=== PATIENT | female | born 1985 | race Caucasian/White ===

== ENCOUNTER 2017-07-26 06:45 | Inpatient (IN) | payer MEDICAID ==
[2017-07-26] MEDS ORDERED: Sodium Chloride 0.9% 10 ML Syringe FLUSH PRN (07:23)
[2017-07-26] MEDS ORDERED: Acetaminophen 325 MG Tab PO PRN (07:23)
[2017-07-26] MEDS ORDERED: fentaNYL 100 MCG/2 ML SDV IVPUSH PRN (07:23)
[2017-07-26] MEDS ORDERED: Calcium Carbonate 500 MG Tab.Chew PO PRN (07:23)
[2017-07-26] MEDS ORDERED: Ondansetron 4 MG/2 ML SDV IV PRN (07:23)
[2017-07-26] MEDS ORDERED: Misoprostol 50 MCG (1/2 of 100 MCG) Tab VAG ONE (07:30)
--- NOTE | 2017-07-26 07:52 | PCM.LDHP ---
L&D History of Present Illness - General Date of Service: 07/26/17 (Induction) Admit Problem/Dx: Patient Status Order with Admit Dx/Problem 07/26/17 07:25 Patient Status [ADT] Routine Admission Diagnosis/Problem Admission Diagnosis/Problem - Related Data Allergies/Adverse Reactions: Allergies Allergy/AdvReac Type Severity Reaction Status Date / Time No Known Allergies Allergy Verified 01/28/16 19:28 Past Medical History [employer] History: Reports: Other (See Below) (MALORIE-08/02/2017) : 4 Para: 3 Social & Family History - Tobacco Use Smoking Status *Q: Former Smoker Years of Tobacco use: 14 Packs/Tins Daily: 0.5 Used Tobacco, but Quit: Yes Month/Year Tobacco Last Used: June Second Hand Smoke Exposure: No - Caffeine Use Caffeine Use: Reports: Soda - Recreational Drug Use Recreational Drug Use: No H&P Review of Systems - Review of Systems: Review Of Systems: See Below General: Reports: No Symptoms HEENT: Reports: No Symptoms Pulmonary: Reports: No Symptoms Cardiovascular: Reports: No Symptoms Gastrointestinal: Reports: No Symptoms Genitourinary: Reports: No Symptoms Musculoskeletal: Reports: No Symptoms Skin: Reports: No Symptoms Psychiatric: Reports: No Symptoms Neurological: Reports: No Symptoms Hematologic/Lymphatic: Reports: No Symptoms Immunologic: Reports: No Symptoms L&D Exam - Exam Exam: See Below - Vital Signs Vital Signs: Last Vital Signs Temp 35.9 C 07/26/17 07:07 Pulse 81 07/26/17 07:07 Resp 16 07/26/17 07:07 BP 122/77 07/26/17 07:07 Pulse Ox 95 07/26/17 07:07 Weight: 94.075 kg - Escalante Score Escalante Score Cervix Position: Midposition Escalante Score Consistency: Soft Escalante Score Effacement: 31-50% Escalante Score Dilation: 1-2 cm Escalante Score 's Station: -2 Escalante Score Total: 6 - Exam General: Alert, Oriented HEENT: PERRLA, Conjunctiva Clear, EACs Clear, EOMI, Hearing Intact, Mucosa Moist & [place], Nares Patent, Normal Nasal Septum, Posterior Pharynx Clear, TMs Clear Neck: Supple, Trachea Midline Lungs: Clear to Auscultation, Normal Respiratory Effort Cardiovascular: Regular Rate, Regular Rhythm GI/Abdominal Exam: Normal Bowel Sounds, Soft, Non-Tender, No Organomegaly, No Distention, No Abnormal Bruit, No Mass, Pelvis Stable Rectal Exam: Normal Exam, Normal Rectal Tone Genitourinary: Normal external exam, Normal bimanual exam, Normal speculum exam Back Exam: Normal Inspection, Full Range of Motion Extremities: Normal Inspection, Normal Range of Motion, Non-Tender, No Pedal Edema, Normal Capillary Refill Skin: Warm, Dry, Intact Neurological: Cranial Nerves Intact, Reflexes Equal Bilateral DTR: 2+: Patella (L), Patella (R) Psychiatric: Alert, Normal Affect, Normal Mood - Patient Data Lab Results Last 24 hrs: Laboratory Results - last 24 hr 07/26/17 07/26/17 Range/Units 07:23 07:23 WBC 8.4 (4.5-11.0) K/uL RBC 4.18 (3.30-5.50) M/uL Hgb 12.7 (12.0-15.0) g/dL Hct 37.4 (36.0-48.0) % MCV 90 (80-98) fL MCH 30 (27-31) pg MCHC 34 (32-36) % Plt Count 194 (150-400) K/uL Neut % (Auto) 66 (36-66) % Lymph % (Auto) 24 (24-44) % Barron % (Auto) 9 H (2-6) % Eos % (Auto) 1 L (2-4) % Baso % (Auto) 0 (0-1) % Urine Color Yellow Urine Appearance Cloudy Urine pH 6.0 (4.5-8.0) Ur Specific [place] 1.020 (1.008-1.030) Urine Protein Negative (NEGATIVE) mg/dL Urine Glucose (UA) Normal (NEGATIVE) mg/dL Urine Ketones Negative (NEGATIVE) mg/dL Urine Occult Blood Negative (NEGATIVE) Urine Nitrite Negative (NEGATIVE) Urine Bilirubin Negative (NEGATIVE) Urine Urobilinogen Normal (NORMAL) mg/dL Ur Leukocyte Esterase Large (NEGATIVE) Urine RBC Not seen (0-5) Urine WBC 30-40 H (0-5) Ur Epithelial Cells Many Amorphous Sediment Moderate Urine Bacteria Moderate Urine Mucus Not seen Urine Other See note Result Diagrams: 07/26/17 07:23 - Problem List (1) SNOMED Code(s): 10829275 ICD Code: Z34.90 - ENCNTR FOR SUPRVSN OF NORMAL , UNSP, UNSP TRIMESTER Status: Acute Current Visit: Yes Qualifiers: Weeks of gestation: 39 weeks Qualified Code(s): Z3A.39 - 39 weeks gestation of (2) GBS (group B streptococcus) infection SNOMED Code(s): 069094545 ICD Code: A49.1 - STREPTOCOCCAL INFECTION, UNSPECIFIED SITE Status: Acute Priority: High Current Visit: Yes (3) Encounter for induction of labor SNOMED Code(s): 831531947 ICD Code: Z34.90 - ENCNTR FOR SUPRVSN OF NORMAL , UNSP, UNSP TRIMESTER Status: Acute Current Visit: Yes Problem List Initiated/Reviewed/Updated: Yes Orders Last 24hrs: Active Orders 24 hr Category Date Time Status Patient Status [ADT] Routine ADT 07/26/17 07:25 Active Ambulate [RC] PER UNIT ROUTINE Care 07/26/17 07:23 Active Communication Order [RC] ASDIRECTED Care 07/26/17 07:25 Active Heart Tones [RC] PER UNIT ROUTINE Care 07/26/17 07:25 Active May Shower [RC] ASDIRECTED Care 07/26/17 07:23 Active Notify Provider Vital Signs [RC] PRN Care 07/26/17 07:23 Active Notify Provider [RC] PRN Care 07/26/17 07:25 Active Up ad Vero [RC] ASDIRECTED Care 07/26/17 07:23 Active VTE/DVT Education [RC] Click to Edit Care 07/26/17 07:26 Active Vital Signs [RC] PER UNIT ROUTINE Care 07/26/17 07:25 Active Regular Diet [DIET] Diet 07/26/17 Breakfast Active DRUG SCREEN, URINE [URCHEM] Routine Lab 07/26/17 07:23 Ordered UA W/MICROSCOPIC [URIN] Routine Lab 07/26/17 07:23 Ordered Acetaminophen [Tylenol] Med 07/26/17 07:23 Active 650 mg PO Q4H PRN Calcium Carbonate [Tums] Med 07/26/17 07:23 Active 1,000 mg PO Q2H PRN Lactated Ringers [Ringers, Lactated] 1,000 ml Med 07/26/17 07:45 Active IV ASDIRECTED Ondansetron [Zofran] Med 07/26/17 07:23 Active 4 mg IV Q4H PRN Oxytocin/Normal Saline [Pitocin in NS 20 Units/1,000 ML Med 07/26/17 07:29 Active ] 20 unit in 1,000 ml IV ONETIME Penicillin G Potassium [Pfizerpen] 2.5 millunits Med 07/26/17 12:00 Active Sodium Chloride 0.9% [Normal Saline] 50 ml IV Q4H Penicillin G Potassium [Pfizerpen] 5 millunits Med 07/26/17 08:00 Active Sodium Chloride 0.9% [Normal Saline] 50 ml IV ONETIME Sodium Chloride 0.9% [Saline Flush] Med 07/26/17 07:23 Active 10 ml FLUSH ASDIRECTED PRN fentaNYL [Sublimaze] Med 07/26/17 07:23 Active 100 mcg IVPUSH Q1H PRN DVT/VTE Prophylaxis Reflex [OM.PC] Routine Oth 07/26/17 07:23 Ordered Epidural Catheter Management [OM.PC] Routine Oth 07/26/17 07:33 Ordered Saline Lock Insert [OM.PC] Routine Oth 07/26/17 07:25 Ordered Resuscitation Status Routine Resus Stat 07/26/17 07:23 Ordered Medication Orders Acetaminophen (Tylenol) 650 mg PO Q4H PRN PRN Reason: Pain (Mild 1-3) and fever Calcium Carbonate/Glycine (Tums) 1,000 mg PO Q2H PRN PRN Reason: Indigestion Fentanyl (Sublimaze) 100 mcg IVPUSH Q1H PRN PRN Reason: Pain (moderate 4-6) Oxytocin/Sodium Chloride (Pitocin In Ns 20 Units/1,000 Ml) 20 unit in 1,000 mls @ 2,997 mls/hr IV ONETIME ONE; Protocol Stop: 07/26/17 07:49 Penicillin G Potassium 5 (millunits/ Sodium Chloride) 50 mls @ 100 mls/hr IV ONETIME ONE Stop: 07/26/17 08:29 Penicillin G Potassium 2.5 (millunits/ Sodium Chloride) 50 mls @ 100 mls/hr IV Q4H [facility] Lactated Ringer's (Ringers, Lactated) 1,000 mls @ 125 mls/hr IV ASDIRECTED [facility] Ondansetron HCl (Zofran) 4 mg IV Q4H PRN PRN Reason: Nausea/Vomiting Sodium Chloride (Saline Flush) 10 ml FLUSH ASDIRECTED PRN PRN Reason: Keep Vein Open Assessment/Plan Comment:: 07/26/2017 31yo at 39 0/7 gestational weeks here for an elective induction of labor SVE-1/50/-2 Bishops score-6 Cytotec 50mcg @ 0770 GBS Positive Plan- Monitor for active labor Monitor FHTs Pen G per protocol for GBS status IV fluids with Pen G then can saline lock Up ad vero Can shower Regular diet Pain management per patient request-IV or epidural Plan and anticipate for vaginal delivery
[2017-07-26] MEDS ORDERED: Penicillin G Potassium 5 MILLUNITS in Sodium Chloride 0.9% 50 ML IV ONE (08:00)
[2017-07-26] MEDS ORDERED: Mineral Oil 10 ML Bottle ONE (09:39)
[2017-07-26] MEDS ORDERED: Oxytocin 10 Units/1 ML SDV ONE (09:39)
[2017-07-26] MEDS ORDERED: Lidocaine 1% 50 ML MDV ONE (09:40)
[2017-07-26] MEDS ORDERED: Naloxone 0.4 MG/ML SDV ONE (09:40)
[2017-07-26] MEDS: Penicillin G Potassium 2.5 MILLUNITS in Sodium Chloride 0.9% 50 ML IV SCH ×3 (12:36→22:55)
[2017-07-26] MEDS: Lactated Ringers 1,000 ML IV SCH ×2 (12:37→15:22)
[2017-07-26] MEDS ORDERED: ePHEDrine 50 MG/ML SDV ONE (14:49)
[2017-07-26] MEDS ORDERED: ROPIVACAINE EPIDUR ONE (14:55)
[2017-07-26] MEDS ORDERED: ePHEDrine 50 MG/ML SDV IVPUSH ONE (15:32)
[2017-07-26] MEDS ORDERED: Ropivacaine 100 ML EPIDUR SCH (15:39)
[2017-07-26] MEDS ORDERED: ePHEDrine 50 MG/ML SDV IV PRN (15:39)
[2017-07-26] MEDS ORDERED: Naloxone 0.4 MG/ML SDV IVPUSH PRN (15:39)
--- NOTE | 2017-07-26 16:51 | PCM.PNLD ---
Labor Progress Note - VS & Meds Vital Signs: Last Vital Signs Temp 36.5 C 07/26/17 07:50 Pulse 64 07/26/17 15:27 Resp 18 07/26/17 15:18 BP 102/56 L 07/26/17 15:30 Pulse Ox 97 07/26/17 15:18 Active Medications: Current Medications Acetaminophen (Tylenol) 650 mg PO Q4H PRN PRN Reason: Pain (Mild 1-3) and fever Calcium Carbonate/Glycine (Tums) 1,000 mg PO Q2H PRN PRN Reason: Indigestion Ephedrine Sulfate (Ephedrine Sulfate) 5 - 10 mg IV ASDIRECTED PRN PRN Reason: Systolic BP less than 100 Fentanyl (Sublimaze) 100 mcg IVPUSH Q1H PRN PRN Reason: Pain (moderate 4-6) Penicillin G Potassium 2.5 (millunits/ Sodium Chloride) 50 mls @ 100 mls/hr IV Q4H [facility] Last Admin: 07/26/17 16:13 Dose: 100 mls/hr Lactated Ringer's (Ringers, Lactated) 1,000 mls @ 125 mls/hr IV ASDIRECTED [facility] Last Admin: 07/26/17 15:22 Dose: 125 mls/hr Oxytocin/Sodium Chloride (Pitocin In Ns 20 Units/1,000 Ml) 20 unit in 1,000 mls @ 6 mls/hr IV TITRATE [facility]; Protocol Last Titration: 07/26/17 15:24 Dose: 10 munits/min, 30 mls/hr Ropivacaine (Naropin 0.2%) 100 mls @ 0 mls/hr EPIDUR ASDIRECTED [facility]; Protocol Naloxone HCl (Narcan) 0.1 mg IVPUSH Q5M PRN PRN Reason: IF RESP RATE LESS THAN 6 Ondansetron HCl (Zofran) 4 mg IV Q4H PRN PRN Reason: Nausea/Vomiting Sodium Chloride (Saline Flush) 10 ml FLUSH ASDIRECTED PRN PRN Reason: Keep Vein Open Discontinued Medications Ephedrine Sulfate (Ephedrine Sulfate) Confirm Administered Dose 50 mg .ROUTE .STK-MED ONE Stop: 07/26/17 14:50 Oxytocin/Sodium Chloride (Pitocin In Ns 20 Units/1,000 Ml) 20 unit in 1,000 mls @ 2,997 mls/hr IV ONETIME ONE; Protocol Stop: 07/26/17 07:49 Penicillin G Potassium 5 (millunits/ Sodium Chloride) 50 mls @ 100 mls/hr IV ONETIME ONE Stop: 07/26/17 08:29 Last Admin: 07/26/17 08:30 Dose: 100 mls/hr Ropivacaine 400 mg/ Premix 200 mls @ as directed EPIDUR .STK-MED ONE Stop: 07/26/17 14:56 Lidocaine HCl (Xylocaine 1%) Confirm Administered Dose 100 ml .ROUTE .STK-MED ONE Stop: 07/26/17 09:41 Mineral Oil (Muri-Lube) Confirm Administered Dose 10 ml .ROUTE .STK-MED ONE Stop: 07/26/17 09:40 Misoprostol (Cytotec) 50 mcg VAG ONETIME ONE Stop: 07/26/17 07:31 Last Admin: 07/26/17 07:39 Dose: 50 mcg Naloxone HCl (Narcan) Confirm Administered Dose 0.4 mg .ROUTE .STK-MED ONE Stop: 07/26/17 09:41 Oxytocin (Pitocin) Confirm Administered Dose 10 unit .ROUTE .STK-MED ONE Stop: 07/26/17 09:40 - Uterine Contractions Uterine Monitoring Mode: External [place] Contraction Frequency (min): 1 Contraction Duration (sec): 50 Contraction Intensity: Mild to Moderate Uterine Resting Tone: Soft - Vaginal Exam Dilation (cm): 1-2 Effacement (Percent): 60 Station: -2 Cervical Position: Posterior Sterile Vaginal Exam Performed By: Galilea Johnston - Labor Progress (Free Text) Labor Progress: 02/25/2017 SVE-1-2/60/-2 Contractions becoming more regular Patient still remains comfortable FHTs category one Plan- Continue to monitor for active labor Continue to monitor FHTs Initiate Pitocin per protocol Pain management per patient request PCN G for GBS prophylaxis Plan and anticipate vaginal delivery
--- NOTE | 2017-07-26 17:15 | PCM.PNLD ---
Labor Progress Note - VS & Meds Vital Signs: Last Vital Signs Temp 36.5 C 07/26/17 07:50 Pulse 64 07/26/17 15:27 Resp 18 07/26/17 15:18 BP 102/56 L 07/26/17 15:30 Pulse Ox 97 07/26/17 15:18 Active Medications: Current Medications Acetaminophen (Tylenol) 650 mg PO Q4H PRN PRN Reason: Pain (Mild 1-3) and fever Calcium Carbonate/Glycine (Tums) 1,000 mg PO Q2H PRN PRN Reason: Indigestion Ephedrine Sulfate (Ephedrine Sulfate) 5 - 10 mg IV ASDIRECTED PRN PRN Reason: Systolic BP less than 100 Fentanyl (Sublimaze) 100 mcg IVPUSH Q1H PRN PRN Reason: Pain (moderate 4-6) Penicillin G Potassium 2.5 (millunits/ Sodium Chloride) 50 mls @ 100 mls/hr IV Q4H [facility] Last Admin: 07/26/17 16:13 Dose: 100 mls/hr Lactated Ringer's (Ringers, Lactated) 1,000 mls @ 125 mls/hr IV ASDIRECTED [facility] Last Admin: 07/26/17 15:22 Dose: 125 mls/hr Oxytocin/Sodium Chloride (Pitocin In Ns 20 Units/1,000 Ml) 20 unit in 1,000 mls @ 6 mls/hr IV TITRATE [facility]; Protocol Last Titration: 07/26/17 15:24 Dose: 10 munits/min, 30 mls/hr Ropivacaine (Naropin 0.2%) 100 mls @ 0 mls/hr EPIDUR ASDIRECTED [facility]; Protocol Naloxone HCl (Narcan) 0.1 mg IVPUSH Q5M PRN PRN Reason: IF RESP RATE LESS THAN 6 Ondansetron HCl (Zofran) 4 mg IV Q4H PRN PRN Reason: Nausea/Vomiting Sodium Chloride (Saline Flush) 10 ml FLUSH ASDIRECTED PRN PRN Reason: Keep Vein Open Discontinued Medications Ephedrine Sulfate (Ephedrine Sulfate) Confirm Administered Dose 50 mg .ROUTE .STK-MED ONE Stop: 07/26/17 14:50 Oxytocin/Sodium Chloride (Pitocin In Ns 20 Units/1,000 Ml) 20 unit in 1,000 mls @ 2,997 mls/hr IV ONETIME ONE; Protocol Stop: 07/26/17 07:49 Penicillin G Potassium 5 (millunits/ Sodium Chloride) 50 mls @ 100 mls/hr IV ONETIME ONE Stop: 07/26/17 08:29 Last Admin: 07/26/17 08:30 Dose: 100 mls/hr Ropivacaine 400 mg/ Premix 200 mls @ as directed EPIDUR .STK-MED ONE Stop: 07/26/17 14:56 Lidocaine HCl (Xylocaine 1%) Confirm Administered Dose 100 ml .ROUTE .STK-MED ONE Stop: 07/26/17 09:41 Mineral Oil (Muri-Lube) Confirm Administered Dose 10 ml .ROUTE .STK-MED ONE Stop: 07/26/17 09:40 Misoprostol (Cytotec) 50 mcg VAG ONETIME ONE Stop: 07/26/17 07:31 Last Admin: 07/26/17 07:39 Dose: 50 mcg Naloxone HCl (Narcan) Confirm Administered Dose 0.4 mg .ROUTE .STK-MED ONE Stop: 07/26/17 09:41 Oxytocin (Pitocin) Confirm Administered Dose 10 unit .ROUTE .STK-MED ONE Stop: 07/26/17 09:40 - Uterine Contractions Uterine Monitoring Mode: External [place] Contraction Frequency (min): 1 Contraction Duration (sec): 50 Contraction Intensity: Mild to Moderate Uterine Resting Tone: Soft - Vaginal Exam Dilation (cm): 4-5 Effacement (Percent): 80 Station: -1 Cervical Position: Midposition Sterile Vaginal Exam Performed By: Galilea Johnston - Labor Progress (Free Text) Labor Progress: 02/25/2017 Patient progressing in labor SVE-4-5/80/-1 AROM-clear, bloody show Patient received epidural-pain well managed Plan- Continue to monitor labor Continue to monitor FHTS Continue epidural for pain management per patient request Continue Pen G for GBS Plan and anticipate a vaginal delivery
[2017-07-26] MEDS ORDERED: Ropivacaine HCl/PF 200 ML ONE (17:21)
[2017-07-26] MEDS ORDERED: Docusate Sodium 100 MG Cap PO PRN (18:53)
[2017-07-26] MEDS ORDERED: Lanolin 100% Cream 40 GM Tube TOP PRN (18:53)
[2017-07-26] MEDS ORDERED: Ibuprofen 200 MG Tab, 24 Tab Bulk Bottle PO PRN (18:53)
[2017-07-26] MEDS ORDERED: Acetaminophen 325 MG Tab, 50 Tab Bulk Bottle PO PRN (18:53)
[2017-07-26] MEDS ORDERED: Acetaminophen/Codeine 300-30 MG Tab PO PRN (18:53)
[2017-07-26] MEDS ORDERED: Ibuprofen 600 MG Tab PO PRN (18:53)
--- NOTE | 2017-07-26 19:24 | PCM.DEL ---
L & D Note - General Info Date of Service: 07/26/17 - Delivery Note Labor: Spontaneous Delivery Outcome: Livebirth Delivery Method: Spontaneous Vaginal Delivery-Single Delivery Mode: Spontaneous Presentation: Left Occiput Anterior (ZIGGY) Nuchal Cord: None Anesthesia Type: Epidural Amniotic Fluid Description: Clear Episiotomy Type: None Laceration: None Placenta: Intact, Spontaneous Cord: 3 Vessels Estimated Blood Loss: 350 Resuscitation Needed: No : Bulb Syringe, Stimulated, Warmed, Vass Used Provider: Galilea Johnston Score 1 min: 8 Score 5 min: 8 Second Stage Interventions: Reports: Encouragement Given, Pushing Effectively Delivery Comments (Free Text/Narrative):: 02/25/2017 31 yo at 39 0/7 gestational weeks delivered a viable male at 1811 on 07/26 without complications in ZIGGY position. APGARS-8/8, weight-7lbs 4.7oz, length-19.7inches, bulb suctioned, warmed, dried and stimulated, deep suction done on warmer times three for 2.5ml of bloody mucous, Placenta spontaneous, three vessel cord. No lacerations noted of labira, cervix, vagina , rectum, or perineum. EBL-350ml. Mother in labor room in stable condition, infant skin to skin in stable condition. - General Info Date of Service: 07/26/17 Functional Status: Reports: Pain Controlled - Review of Systems General: Reports: No Symptoms HEENT: Reports: No Symptoms Pulmonary: Reports: No Symptoms Cardiovascular: Reports: No Symptoms Gastrointestinal: Reports: No Symptoms Genitourinary: Reports: No Symptoms Musculoskeletal: Reports: No Symptoms Skin: Reports: No Symptoms Neurological: Reports: No Symptoms Psychiatric: Reports: No Symptoms - Patient Data Vitals - Most Recent: Last Vital Signs Temp 36.5 C 07/26/17 07:50 Pulse 60 07/26/17 16:43 Resp 16 07/26/17 16:10 BP 104/59 L 07/26/17 16:43 Pulse Ox 99 07/26/17 16:43 Weight - Most Recent: 94.075 kg I&O - Last 24 Hours: Intake & Output 07/26/17 07/26/17 07/26/17 06:59 14:59 22:59 Intake Total 100 50 Balance 100 50 Lab Results Last 24 Hours: Laboratory Results - last 24 hr 07/26/17 07/26/17 07/26/17 Range/Units 07:23 07:23 07:23 WBC 8.4 (4.5-11.0) K/uL RBC 4.18 (3.30-5.50) M/uL Hgb 12.7 (12.0-15.0) g/dL Hct 37.4 (36.0-48.0) % MCV 90 (80-98) fL MCH 30 (27-31) pg MCHC 34 (32-36) % Plt Count 194 (150-400) K/uL Neut % (Auto) 66 (36-66) % Lymph % (Auto) 24 (24-44) % [place] % (Auto) 9 H (2-6) % Eos % (Auto) 1 L (2-4) % Baso % (Auto) 0 (0-1) % Urine Color Yellow Urine Appearance Cloudy Urine pH 6.0 (4.5-8.0) Ur Specific [place] 1.020 (1.008-1.030) Urine Protein Negative (NEGATIVE) mg/dL Urine Glucose (UA) Normal (NEGATIVE) mg/dL Urine Ketones Negative (NEGATIVE) mg/dL Urine Occult Blood Negative (NEGATIVE) Urine Nitrite Negative (NEGATIVE) Urine Bilirubin Negative (NEGATIVE) Urine Urobilinogen Normal (NORMAL) mg/dL Ur Leukocyte Esterase Large (NEGATIVE) Urine RBC Not seen (0-5) Urine WBC 30-40 H (0-5) Ur Epithelial Cells Many Amorphous Sediment Moderate Urine Bacteria Moderate Urine Mucus Not seen Urine Other See note Urine Opiates Screen Negative (NEGATIVE) Ur Oxycodone Screen Negative (NEGATIVE) Urine Methadone Screen Negative (NEGATIVE) Ur Propoxyphene Screen Negative (NEGATIVE) Ur Barbiturates Screen Negative (NEGATIVE) Ur Tricyclics Screen Negative (NEGATIVE) Ur Phencyclidine Scrn Negative (NEGATIVE) Ur Amphetamine Screen Negative (NEGATIVE) U Methamphetamines Scrn Negative (NEGATIVE) Urine MDMA Screen Negative (NEGATIVE) U Benzodiazepines Scrn Negative (NEGATIVE) U Cocaine Metab Screen Negative (NEGATIVE) U Marijuana (THC) Screen Negative (NEGATIVE) Med Orders - Current: Current Medications Acetaminophen (Tylenol) 650 mg PO Q4H PRN PRN Reason: Pain (Mild 1-3) and fever Acetaminophen (Tylenol Bulk Bottle) 325 mg PO Q4H PRN PRN Reason: Pain Acetaminophen/Codeine Phosphate (Tylenol With Codeine No.3 300mg/30mg) 1 tab PO Q4H PRN PRN Reason: Pain (moderate 4-6) Calcium Carbonate/Glycine (Tums) 1,000 mg PO Q2H PRN PRN Reason: Indigestion Docusate Sodium (Colace) 100 mg PO BID PRN PRN Reason: Constipation Emollient Ointment (Lansinoh Hpa) 1 gm TOP ASDIRECTED PRN PRN Reason: Sore Nipples Ephedrine Sulfate (Ephedrine Sulfate) 5 - 10 mg IV ASDIRECTED PRN PRN Reason: Systolic BP less than 100 Fentanyl (Sublimaze) 100 mcg IVPUSH Q1H PRN PRN Reason: Pain (moderate 4-6) Penicillin G Potassium 2.5 (millunits/ Sodium Chloride) 50 mls @ 100 mls/hr IV Q4H [facility] Last Admin: 07/26/17 16:13 Dose: 100 mls/hr Lactated Ringer's (Ringers, Lactated) 1,000 mls @ 125 mls/hr IV ASDIRECTED [facility] Last Admin: 07/26/17 15:22 Dose: 125 mls/hr Oxytocin/Sodium Chloride (Pitocin In Ns 20 Units/1,000 Ml) 20 unit in 1,000 mls @ 6 mls/hr IV TITRATE [facility]; Protocol Last Titration: 07/26/17 17:30 Dose: 8 munits/min, 24 mls/hr Ropivacaine (Naropin 0.2%) 100 mls @ 0 mls/hr EPIDUR ASDIRECTED [facility]; Protocol Ibuprofen (Motrin Bulk Bottle) 600 mg PO Q6H PRN PRN Reason: Pain Ibuprofen (Motrin) 600 mg PO Q6H PRN PRN Reason: mild pain or fever Naloxone HCl (Narcan) 0.1 mg IVPUSH Q5M PRN PRN Reason: IF RESP RATE LESS THAN 6 Ondansetron HCl (Zofran) 4 mg IV Q4H PRN PRN Reason: Nausea/Vomiting Sodium Chloride (Saline Flush) 10 ml FLUSH ASDIRECTED PRN PRN Reason: Keep Vein Open Discontinued Medications Ephedrine Sulfate (Ephedrine Sulfate) Confirm Administered Dose 50 mg .ROUTE .[facility]-MED ONE Stop: 07/26/17 14:50 Oxytocin/Sodium Chloride (Pitocin In Ns 20 Units/1,000 Ml) 20 unit in 1,000 mls @ 2,997 mls/hr IV ONETIME ONE; Protocol Stop: 07/26/17 07:49 Penicillin G Potassium 5 (millunits/ Sodium Chloride) 50 mls @ 100 mls/hr IV ONETIME ONE Stop: 07/26/17 08:29 Last Admin: 07/26/17 08:30 Dose: 100 mls/hr Ropivacaine 400 mg/ Premix 200 mls @ as directed EP[facility]UR .STK-MED ONE Stop: 07/26/17 14:56 Ropivacaine (Naropin 0.2%) Confirm Administered Dose 200 mls @ as directed .ROUTE .STK-MED ONE Stop: 07/26/17 17:22 Lidocaine HCl (Xylocaine 1%) Confirm Administered Dose 100 ml .ROUTE .STK-MED ONE Stop: 07/26/17 09:41 Mineral Oil (Muri-Lube) Confirm Administered Dose 10 ml .ROUTE .STK-MED ONE Stop: 07/26/17 09:40 Misoprostol (Cytotec) 50 mcg VAG ONETIME ONE Stop: 07/26/17 07:31 Last Admin: 07/26/17 07:39 Dose: 50 mcg Naloxone HCl (Narcan) Confirm Administered Dose 0.4 mg .ROUTE .STK-MED ONE Stop: 07/26/17 09:41 Oxytocin (Pitocin) Confirm Administered Dose 10 unit .ROUTE .STK-MED ONE Stop: 07/26/17 09:40 - Exam General: Alert, Oriented HEENT: Pupils Equal, Pupils Reactive, EOMI, Mucous Membr. Moist/[place] Neck: Supple Lungs: Clear to Auscultation, Normal Respiratory Effort Cardiovascular: Regular Rate, Regular Rhythm GI/Abdominal Exam: Normal Bowel Sounds, Soft, Non-Tender, No Organomegaly, No Distention, No Abnormal Bruit, No Mass, Pelvis Stable (Female) Exam: Normal External Exam, Normal Speculum Exam, Normal Bimanual Exam Back Exam: Normal Inspection, Full Range of Motion Extremities: Normal Inspection, Normal Range of Motion, Non-Tender, No Pedal Edema, Normal Capillary Refill Skin: Warm, Dry, Intact Neurological: No New Focal Deficit Psy/Mental Status: Alert, Normal Affect, Normal Mood - Problem List & Annotations (1) SNOMED Code(s): 96948422 Code(s): Z34.90 - ENCNTR FOR SUPRVSN OF NORMAL , UNSP, UNSP TRIMESTER Status: Acute Current Visit: Yes Qualifiers: Weeks of gestation: 39 weeks Qualified Code(s): Z3A.39 - 39 weeks gestation of (2) GBS (group B streptococcus) infection SNOMED Code(s): 917267892 Code(s): A49.1 - STREPTOCOCCAL INFECTION, UNSPECIFIED SITE Status: Acute Priority: High Current Visit: Yes (3) Encounter for induction of labor SNOMED Code(s): 815726118 Code(s): Z34.90 - ENCNTR FOR SUPRVSN OF NORMAL , UNSP, UNSP TRIMESTER Status: Acute Current Visit: Yes - Problem List Review Problem List Initiated/Reviewed/Updated: Yes - My Orders Last 24 Hours: My Active Orders 07/26/17 07:23 Ambulate [RC] PER UNIT ROUTINE May Shower [RC] ASDIRECTED Notify Provider Vital Signs [RC] PRN Up ad Vero [RC] ASDIRECTED DRUG SCREEN, URINE [URCHEM] Routine UA W/MICROSCOPIC [URIN] Routine Acetaminophen [Tylenol] 650 mg PO Q4H PRN Calcium Carbonate [Tums] 1,000 mg PO Q2H PRN Ondansetron [Zofran] 4 mg IV Q4H PRN Sodium Chloride 0.9% [Saline Flush] 10 ml FLUSH ASDIRECTED PRN fentaNYL [Sublimaze] 100 mcg IVPUSH Q1H PRN DVT/VTE Prophylaxis Reflex [OM.PC] Routine Resuscitation Status Routine 07/26/17 07:25 Patient Status [ADT] Routine Communication Order [RC] ASDIRECTED Heart Tones [RC] PER UNIT ROUTINE Notify Provider [RC] PRN Vital Signs [RC] PER UNIT ROUTINE Saline Lock Insert [OM.PC] Routine 07/26/17 07:33 Epidural Catheter Management [OM.PC] Routine 07/26/17 07:45 Lactated Ringers [Ringers, Lactated] 1,000 ml IV ASDIRECTED 07/26/17 12:00 Penicillin G Potassium [Pfizerpen] 2.5 millunits Sodium Chloride 0.9% [Normal Saline] 50 ml IV Q4H 07/26/17 12:30 Oxytocin/Normal Saline [Pitocin in NS 20 Units/1,000 ML] 20 unit in 1,000 ml IV TITRATE 07/26/17 18:53 Patient Status [ADT] Routine Communication Order [RC] ROUTINE Vital Signs [RC] PFP Acetaminophen [Tylenol Bulk Bottle] 325 mg PO Q4H PRN Acetaminophen/Codeine [Tylenol with Codeine No.3 300MG/30MG] 1 tab PO Q4H PRN Docusate Sodium [Colace] 100 mg PO BID PRN Ibuprofen [Motrin Bulk Bottle] 600 mg PO Q6H PRN Ibuprofen [Motrin] 600 mg PO Q6H PRN Lanolin [Lansinoh HPA] 1 gm TOP ASDIRECTED PRN Assess Lochia [WOMSER] Per Unit Routine Assess Uterine Involution [WOMSER] Per Unit Routine Perineal Care [OM.PC] Per Unit Routine 07/26/17 Breakfast Regular Diet [DIET] 07/27/17 06:00 CBC WITH AUTO DIFF [HEME] Routine HSV TYPE 1-SPECIFIC AB, IGG Routine HSV TYPE 2-SPECIFIC AB, IGG Routine - Assessment Assessment:: 02/25/2017 31 yo G4 now P4 39 0/7 without complications Labs-O negative, GBS positive, Hep B neg, Hep C neg, HIV neg, RPR nonreactive, Rubella Immune - Plan Plan:: 07/26/2017 31yo at 39 0/7 gestational weeks here for an elective induction of labor SVE-1/50/-2 Bishops score-6 Cytotec 50mcg @ 0710 GBS Positive Plan- Monitor for active labor Monitor FHTs Pen G per protocol for GBS status IV fluids with Pen G then can saline lock Up ad vero Can shower Regular diet Pain management per patient request-IV or epidural Plan and anticipate for vaginal delivery 02/25/2017 Routine Cares Support and encourage CBC and HSV1&HSV2 draw in am 24-48 hour discharge
--- NOTE | 2017-07-27 01:31 | ANES ---
DATE OF SERVICE: 07/26/2017 Labor Epidural Note INDICATIONS: Michelle is a 31-year-old female patient requesting a labor epidural for labor pain. A brief history and physical was obtained. The patient stated that she had no abnormal bleeding history. No diabetes. No high blood pressure or preeclampsia. Stated that her was normal. This is her fourth baby. She has had epidurals in the past. Platelet count was 194. Risks and benefits were reviewed with the patient and significant other. The patient wishes to proceed with labor epidural at this time. DESCRIPTION OF PROCEDURE: The patient was then sat at the edge of the bed. Betadine prep done to the lumbar region. Sterile drape was placed. A 1% lidocaine skin wheal and deep was done. A 17-gauge Tuohy needle was inserted at approximately the L4-L5 space. Loss of resistance was achieved at about 4-5 cm. Catheter was then placed. Tuohy needle was withdrawn. Catheter was pulled back to approximately 11 cm and secured. A 3 mL test dose was done. The patient was then sat supine after an appropriate amount of time and no signs of local anesthetic toxicity or intravascular infusion. I then proceeded to give the patient 12 mL of 0.2% ropivacaine via the epidural and started her on a ropivacaine drip at 12 mL an hour. The patient stated that she was comfortable upon exiting the room. We will monitor the patient closely. Black Pandya CRNA /[id number]
[2017-07-27] MEDS ORDERED: Acetaminophen 325 MG Tab, 50 Tab Bulk Bottle PO PRN (08:00)
--- NOTE | 2017-07-27 08:14 | PCM.PNPP ---
- General Info Date of Service: 07/27/17 (PPD 1) Admission Dx/Problem (Free Text): Patient Status Order with Admit Dx/Problem 07/26/17 07:25 Patient Status [ADT] Routine Admission Diagnosis/Problem Admission Diagnosis/Problem Functional Status: Reports: Pain Controlled - Review of Systems General: Reports: No Symptoms HEENT: Reports: No Symptoms Pulmonary: Reports: No Symptoms Cardiovascular: Reports: No Symptoms Gastrointestinal: Reports: No Symptoms Genitourinary: Reports: No Symptoms Musculoskeletal: Reports: No Symptoms Skin: Reports: No Symptoms Neurological: Reports: No Symptoms Psychiatric: Reports: No Symptoms Systems Review Comment:: Flow light mild cramping - General Info Date of Service: 07/27/17 - Patient Data Vital Signs - Most Recent: Last Vital Signs Temp 96.8 F 07/27/17 07:50 Pulse 60 07/27/17 07:50 Resp 18 07/27/17 07:50 BP 104/71 07/27/17 07:50 Pulse Ox 98 07/27/17 07:50 Weight - Most Recent: 207 lb 6.4 oz I&O - Last 24 Hours: Intake & Output 07/26/17 07/27/17 07/27/17 22:59 06:59 14:59 Intake Total 50 600 Output Total 125 Balance -75 600 Lab Results - Last 24 Hours: Laboratory Results - last 24 hr 07/27/17 07/27/17 Range/Units 05:11 06:00 WBC 9.9 (4.5-11.0) K/uL RBC 3.93 (3.30-5.50) M/uL Hgb 12.1 (12.0-15.0) g/dL Hct 35.6 L (36.0-48.0) % MCV 91 (80-98) fL MCH 31 (27-31) pg MCHC 34 (32-36) % Plt Count 167 (150-400) K/uL Neut % (Auto) 66 (36-66) % Lymph % (Auto) 24 (24-44) % [place] % (Auto) 9 H (2-6) % Eos % (Auto) 1 L (2-4) % Baso % (Auto) 0 (0-1) % Blood Type O NEGATIVE Gel Antibody Screen Positive A* Rhogam Indicated Yes, baby rh pos Med Orders - Current: Current Medications Acetaminophen (Tylenol Bulk Bottle) 325 - 650 mg PO Q4H PRN PRN Reason: Pain Acetaminophen/Codeine Phosphate (Tylenol With Codeine No.3 300mg/30mg) 1 tab PO Q4H PRN PRN Reason: Pain (moderate 4-6) Last Admin: 07/26/17 19:26 Dose: 1 tab Calcium Carbonate/Glycine (Tums) 1,000 mg PO Q2H PRN PRN Reason: Indigestion Docusate Sodium (Colace) 100 mg PO BID PRN PRN Reason: Constipation Emollient Ointment (Lansinoh Hpa) 0 gm TOP ASDIRECTED PRN PRN Reason: Sore Nipples Last Admin: 07/26/17 21:03 Dose: 1 applic Lactated Ringer's (Ringers, Lactated) 1,000 mls @ 125 mls/hr IV ASDIRECTED [facility] Last Admin: 07/26/17 15:22 Dose: 125 mls/hr Ibuprofen (Motrin Bulk Bottle) 600 mg PO Q6H PRN PRN Reason: Pain Last Admin: 07/26/17 21:02 Dose: 600 mg Naloxone HCl (Narcan) 0.1 mg IVPUSH Q5M PRN PRN Reason: IF RESP RATE LESS THAN 6 Ondansetron HCl (Zofran) 4 mg IV Q4H PRN PRN Reason: Nausea/Vomiting Sodium Chloride (Saline Flush) 10 ml FLUSH ASDIRECTED PRN PRN Reason: Keep Vein Open Discontinued Medications Acetaminophen (Tylenol Bulk Bottle) 325 mg PO Q4H PRN PRN Reason: Pain Last Admin: 07/26/17 21:04 Dose: 325 mg Ephedrine Sulfate (Ephedrine Sulfate) Confirm Administered Dose 50 mg .ROUTE .STK-MED ONE Stop: 07/26/17 14:50 Last Admin: 07/26/17 20:37 Dose: Not Given Ephedrine Sulfate (Ephedrine Sulfate) 5 - 10 mg IV ASDIRECTED PRN PRN Reason: Systolic BP less than 100 Fentanyl (Sublimaze) 100 mcg IVPUSH Q1H PRN PRN Reason: Pain (moderate 4-6) Oxytocin/Sodium Chloride (Pitocin In Ns 20 Units/1,000 Ml) 20 unit in 1,000 mls @ 2,997 mls/hr IV ONETIME ONE; Protocol Stop: 07/26/17 07:49 Last Admin: 07/26/17 18:15 Dose: 999 munits/min, 999 mls/hr Penicillin G Potassium 5 (millunits/ Sodium Chloride) 50 mls @ 100 mls/hr IV ONETIME ONE Stop: 07/26/17 08:29 Last Admin: 07/26/17 08:30 Dose: 100 mls/hr Penicillin G Potassium 2.5 (millunits/ Sodium Chloride) 50 mls @ 100 mls/hr IV Q4H [facility] Last Admin: 07/26/17 22:55 Dose: Not Given Oxytocin/Sodium Chloride (Pitocin In Ns 20 Units/1,000 Ml) 20 unit in 1,000 mls @ 6 mls/hr IV TITRATE [facility]; Protocol Last Titration: 07/26/17 18:50 Dose: Infused Ropivacaine (Naropin 0.2%) 100 mls @ 0 mls/hr EPIDUR ASDIRECTED [facility]; Protocol Ropivacaine (Naropin 0.2%) Confirm Administered Dose 200 mls @ as directed .ROUTE .STK-MED ONE Stop: 07/26/17 17:22 Lidocaine HCl (Xylocaine 1%) Confirm Administered Dose 100 ml .ROUTE .STK-MED ONE Stop: 07/26/17 09:41 Last Admin: 07/26/17 20:36 Dose: Not Given Mineral Oil (Muri-Lube) Confirm Administered Dose 10 ml .ROUTE .STK-MED ONE Stop: 07/26/17 09:40 Last Admin: 07/26/17 20:37 Dose: Not Given Misoprostol (Cytotec) 50 mcg VAG ONETIME ONE Stop: 07/26/17 07:31 Last Admin: 07/26/17 07:39 Dose: 50 mcg Naloxone HCl (Narcan) Confirm Administered Dose 0.4 mg .ROUTE .STK-MED ONE Stop: 07/26/17 09:41 Last Admin: 07/26/17 20:37 Dose: Not Given Oxytocin (Pitocin) Confirm Administered Dose 10 unit .ROUTE .STK-MED ONE Stop: 07/26/17 09:40 Last Admin: 07/26/17 20:37 Dose: Not Given - Infant Interaction Infant Disposition, : [place] in Room with Family Interaction: Holding Infant Infant Feeding: Breastfed Infant; Nursed Well Support Person: Significant Other - Recovery Exam Fundal Tone: Firm Fundal Level: At Umbilicus Fundal Placement: Midline Lochia Amount: Small Lochia Color: Rubra/Red Perineum Description: Intact, Minimal Bruising/Swelling Other Perinuem Description: 7 mm gential wart just above her clitorus Episiotomy/Laceration: None Bladder Status: Voiding Urinary Elimination: Voided - Exam General: Alert, Oriented HEENT: Pupils Equal Neck: Supple Lungs: Clear to Auscultation, Rhonchi Cardiovascular: Regular Rate GI/Abdominal Exam: Soft, Non-Tender Extremities: Normal Inspection, No Pedal Edema Skin: Warm, Dry Neurological: No New Focal Deficit Psy/Mental Status: Alert, Normal Affect, Normal Mood - Problem List & Annotations (1) Normal vaginal delivery SNOMED Code(s): 25483463 Code(s): O80 - ENCOUNTER FOR FULL-TERM UNCOMPLICATED DELIVERY Status: Acute Current Visit: Yes (2) SNOMED Code(s): 59289884 Code(s): Z34.90 - ENCNTR FOR SUPRVSN OF NORMAL , UNSP, UNSP TRIMESTER Status: Acute Current Visit: Yes Qualifiers: Weeks of gestation: 39 weeks Qualified Code(s): Z3A.39 - 39 weeks gestation of (3) GBS (group B streptococcus) infection SNOMED Code(s): 487646933 Code(s): A49.1 - STREPTOCOCCAL INFECTION, UNSPECIFIED SITE Status: Acute Priority: High Current Visit: Yes - Problem List Review Problem List Initiated/Reviewed/Updated: Yes - Assessment Assessment:: 02/25/2017 31 yo G4 now P4 39 0/7 without complications Labs-O negative, GBS positive, Hep B neg, Hep C neg, HIV neg, RPR nonreactive, Rubella Immune 07/27/17 Doing well, happy, voiding HGB 12.1 There had been a concern about a HSV lesion, on inspection it is a genital wart. HSV labs pending without problems, baby latches easy - Plan Plan:: 07/26/2017 31yo at 39 0/7 gestational weeks here for an elective induction of labor SVE-/-2 Bishops score-[address] @ 3448 GBS Positive Plan- Monitor for active labor Monitor FHTs Pen G per protocol for GBS status IV fluids with Pen G then can saline lock Up ad alexa Can shower Regular diet Pain management per patient request-IV or epidural Plan and anticipate for vaginal delivery 02/25/2017 Routine Cares Support and encourage CBC and HSV1&HSV2 draw in am 24-48 hour discharge 07/27/17 Continue routine cares Home tomorrow
--- NOTE | 2017-07-28 08:08 | PCM.PNPP ---
- General Info Date of Service: 07/28/17 ( Day Two) Functional Status: Reports: Pain Controlled - Review of Systems General: Reports: No Symptoms HEENT: Reports: No Symptoms Pulmonary: Reports: No Symptoms Cardiovascular: Reports: No Symptoms Gastrointestinal: Reports: No Symptoms Genitourinary: Reports: No Symptoms Musculoskeletal: Reports: No Symptoms Skin: Reports: No Symptoms Neurological: Reports: No Symptoms Psychiatric: Reports: No Symptoms - General Info Date of Service: 07/28/17 - Patient Data Vital Signs - Most Recent: Last Vital Signs Temp 36.0 C 07/28/17 02:53 Pulse 79 07/28/17 02:53 Resp 14 07/28/17 02:53 BP 105/68 07/28/17 02:53 Pulse Ox 96 07/28/17 02:53 Weight - Most Recent: 94.075 kg I&O - Last 24 Hours: Intake & Output 07/27/17 07/28/17 07/28/17 22:59 06:59 14:59 Intake Total 820 1000 Balance 820 1000 Lab Results - Last 24 Hours: Laboratory Results - last 24 hr 07/27/17 Range/Units 05:11 Screen Negative Med Orders - Current: Current Medications Acetaminophen (Tylenol Bulk Bottle) 325 - 650 mg PO Q4H PRN PRN Reason: Pain Acetaminophen/Codeine Phosphate (Tylenol With Codeine No.3 300mg/30mg) 1 tab PO Q4H PRN PRN Reason: Pain (moderate 4-6) Last Admin: 07/26/17 19:26 Dose: 1 tab Calcium Carbonate/Glycine (Tums) 1,000 mg PO Q2H PRN PRN Reason: Indigestion Docusate Sodium (Colace) 100 mg PO BID PRN PRN Reason: Constipation Last Admin: 07/27/17 13:50 Dose: 100 mg Emollient Ointment (Lansinoh Hpa) 0 gm TOP ASDIRECTED PRN PRN Reason: Sore Nipples Last Admin: 07/26/17 21:03 Dose: 1 applic Ibuprofen (Motrin Bulk Bottle) 600 mg PO Q6H PRN PRN Reason: Pain Last Admin: 07/26/17 21:02 Dose: 600 mg Naloxone HCl (Narcan) 0.1 mg IVPUSH Q5M PRN PRN Reason: IF RESP RATE LESS THAN 6 Ondansetron HCl (Zofran) 4 mg IV Q4H PRN PRN Reason: Nausea/Vomiting Sodium Chloride (Saline Flush) 10 ml FLUSH ASDIRECTED PRN PRN Reason: Keep Vein Open Discontinued Medications Acetaminophen (Tylenol Bulk Bottle) 325 mg PO Q4H PRN PRN Reason: Pain Last Admin: 07/26/17 21:04 Dose: 325 mg Ephedrine Sulfate (Ephedrine Sulfate) Confirm Administered Dose 50 mg .ROUTE .[employer] ONE Stop: 07/26/17 14:50 Last Admin: 07/26/17 20:37 Dose: Not Given Ephedrine Sulfate (Ephedrine Sulfate) 5 - 10 mg IV ASDIRECTED PRN PRN Reason: Systolic BP less than 100 Fentanyl (Sublimaze) 100 mcg IVPUSH Q1H PRN PRN Reason: Pain (moderate 4-6) Oxytocin/Sodium Chloride (Pitocin In Ns 20 Units/1,000 Ml) 20 unit in 1,000 mls @ 2,997 mls/hr IV ONETIME ONE; Protocol Stop: 07/26/17 07:49 Last Admin: 07/26/17 18:15 Dose: 999 munits/min, 999 mls/hr Penicillin G Potassium 5 (millunits/ Sodium Chloride) 50 mls @ 100 mls/hr IV ONETIME ONE Stop: 07/26/17 08:29 Last Admin: 07/26/17 08:30 Dose: 100 mls/hr Penicillin G Potassium 2.5 (millunits/ Sodium Chloride) 50 mls @ 100 mls/hr IV Q4H AUGUST Last Admin: 07/26/17 22:55 Dose: Not Given Lactated Ringer's (Ringers, Lactated) 1,000 mls @ 125 mls/hr IV ASDIRECTED AUGUST Last Admin: 07/26/17 15:22 Dose: 125 mls/hr Oxytocin/Sodium Chloride (Pitocin In Ns 20 Units/1,000 Ml) 20 unit in 1,000 mls @ 6 mls/hr IV TITRATE AUGUST; Protocol Last Titration: 07/26/17 18:50 Dose: Infused Ropivacaine (Naropin 0.2%) 100 mls @ 0 mls/hr EPIDUR ASDIRECTED AUGUST; Protocol Ropivacaine (Naropin 0.2%) Confirm Administered Dose 200 mls @ as directed .ROUTE .[employer] ONE Stop: 07/26/17 17:22 Lidocaine HCl (Xylocaine 1%) Confirm Administered Dose 100 ml .ROUTE .STK-MED ONE Stop: 07/26/17 09:41 Last Admin: 07/26/17 20:36 Dose: Not Given Mineral Oil (Muri-Lube) Confirm Administered Dose 10 ml .ROUTE .STK-MED ONE Stop: 07/26/17 09:40 Last Admin: 07/26/17 20:37 Dose: Not Given Misoprostol (Cytotec) 50 mcg VAG ONETIME ONE Stop: 07/26/17 07:31 Last Admin: 07/26/17 07:39 Dose: 50 mcg Naloxone HCl (Narcan) Confirm Administered Dose 0.4 mg .ROUTE .STK-MED ONE Stop: 07/26/17 09:41 Last Admin: 07/26/17 20:37 Dose: Not Given Oxytocin (Pitocin) Confirm Administered Dose 10 unit .ROUTE .STK-MED ONE Stop: 07/26/17 09:40 Last Admin: 07/26/17 20:37 Dose: Not Given - Infant Interaction Infant Disposition, : in Room with Family Infant Interaction: Holding Feeding: Breastfed Infant; Nursed Well Support Person: Significant Other - Recovery Exam Fundal Tone: Firm Fundal Level: 1 Fingerbreadths Below Umbilicus Fundal Placement: Midline Lochia Amount: Small Lochia Color: Rubra/Red Perineum Description: Intact, Minimal Bruising/Swelling Other Perinuem Description: 7 mm gential wart just above her clitorus Episiotomy/Laceration: None Bladder Status: Voiding Urinary Elimination: Voided - Exam General: Alert, Oriented HEENT: Pupils Equal Neck: Supple Lungs: Clear to Auscultation, Normal Respiratory Effort Cardiovascular: Regular Rate, Regular Rhythm GI/Abdominal Exam: Normal Bowel Sounds, Soft, Non-Tender, No Organomegaly, No Distention, No Abnormal Bruit, No Mass, Pelvis Stable Extremities: Normal Inspection, Normal Range of Motion, Non-Tender, No Pedal Edema, Normal Capillary Refill Skin: Warm, Dry, Intact Neurological: No New Focal Deficit Psy/Mental Status: Alert, Normal Affect, Normal Mood - Problem List & Annotations (1) SNOMED Code(s): 31961277 Code(s): Z34.90 - ENCNTR FOR SUPRVSN OF NORMAL , UNSP, UNSP TRIMESTER Status: Acute Current Visit: Yes Qualifiers: Weeks of gestation: 39 weeks Qualified Code(s): Z3A.39 - 39 weeks gestation of (2) GBS (group B streptococcus) infection SNOMED Code(s): 783183985 Code(s): A49.1 - STREPTOCOCCAL INFECTION, UNSPECIFIED SITE Status: Acute Priority: High Current Visit: Yes (3) Encounter for induction of labor SNOMED Code(s): 094731082 Code(s): Z34.90 - ENCNTR FOR SUPRVSN OF NORMAL , UNSP, UNSP TRIMESTER Status: Acute Current Visit: Yes - Problem List Review Problem List Initiated/Reviewed/Updated: Yes - My Orders Last 24 Hours: My Active Orders 07/27/17 08:00 Acetaminophen [Tylenol Bulk Bottle] 325 - 650 mg PO Q4H PRN - Assessment Assessment:: 02/25/2017 31 yo G4 now P4 39 0/7 without complications Labs-O negative, GBS positive, Hep B neg, Hep C neg, HIV neg, RPR nonreactive, Rubella Immune 07/27/17 Doing well, happy, voiding HGB 12.1 There had been a concern about a HSV lesion, on inspection it is a genital wart. HSV labs pending without problems, baby latches easy 07/28/2017 Day Two without complications Doing well, happy Voiding and passing gas Fundus firm and bleeding decreasing HSV labs still pending well - Plan Plan:: 07/26/2017 31yo at 39 0/7 gestational weeks here for an elective induction of labor SVE-1/50/-2 Bishops score-6 Cytotec 50mcg @ 0745 GBS Positive Plan- Monitor for active labor Monitor FHTs Pen G per protocol for GBS status IV fluids with Pen G then can saline lock Up ad alexa Can shower Regular diet Pain management per patient request-IV or epidural Plan and anticipate for vaginal delivery 07/26/2017 Routine Cares Support and encourage CBC and HSV1&HSV2 draw in am 24-48 hour discharge 07/27/17 Continue routine cares Home tomorrow 07/28/2017 Continue Routine Postparutm Cares Continue to support and encourage Discharge home today To see me in clinic in 6 weeks for visit
[2017-07-28 08:36] VITALS: BP 112/76
== END 2017-07-28 12:39 | disposition home or self-care (01) | DRG 560 ==
LOC: JP.OB 06:45 → OBSVTOIN 18:11 → JP.OB 18:11 → JP.MS 19:20
PROVIDERS: ADMIT Advanced Practice Midwife; ATTEND Advanced Practice Midwife
PROC: 10E0XZZ Delivery of Products of Conception, External Approach (ICD-10-PCS; principal; 2017-07-26)
PROC: 3E0P7VZ Introduction of Hormone into Female Reproductive, Via Natural or Artificial Opening (ICD-10-PCS; 2017-07-26)
PROC: 3E033VJ Introduction of Other Hormone into Peripheral Vein, Percutaneous Approach (ICD-10-PCS; 2017-07-26)
PROC: 00HU33Z Insertion of Infusion Device into Spinal Canal, Percutaneous Approach (ICD-10-PCS; 2017-07-26)
PROC: 3E0234Z Introduction of Serum, Toxoid and Vaccine into Muscle, Percutaneous Approach (ICD-10-PCS; 2017-07-27)
DX: O99.824 Streptococcus B carrier state complicating childbirth (principal); Z3A.39 39 weeks gestation of pregnancy; Z37.0 Single live birth; O98.32 Other infections with a predominantly sexual mode of transmission complicating childbirth; A60.09 Herpesviral infection of other urogenital tract; O36.0990 Maternal care for other rhesus isoimmunization, unspecified trimester, not applicable or unspecified
CPT/HCPCS: 36415; 36430; 51701; 59409; 80305; 81001; 85025; 85460; 86695; 86696; 86850; 86900; 86901; A9270-GY; J2540; J2590; J2790; J2795; J7050; J7120

== ENCOUNTER 2020-08-30 05:17 | Inpatient (IN) | payer MEDICAID ==
[2020-08-30] MEDS ORDERED: Misoprostol 50 MCG (1/2 of 100 MCG) Tab VAG ONE (06:49)
[2020-08-30] MEDS ORDERED: Acetaminophen 325 MG Tab PO PRN (08:10)
[2020-08-30] MEDS ORDERED: Ondansetron 4 MG/2 ML SDV IV PRN (08:10)
[2020-08-30] MEDS ORDERED: Lactated Ringers 1,000 ML IV ONE (08:10)
[2020-08-30] MEDS ORDERED: ePHEDrine 50 MG/ML SDV IVPUSH PRN (08:10)
[2020-08-30] MEDS ORDERED: Sodium Chloride 0.9% 10 ML Syringe FLUSH PRN (08:10)
--- NOTE | 2020-08-30 08:24 | PCM.LDHP ---
L&D History of Present Illness - General Date of Service: 08/30/20 Admit Problem/Dx: Patient Status Order with Admit Dx/Problem 08/30/20 08:10 Patient Status [ADT] Routine Admission Diagnosis/Problem Admission Diagnosis/Problem - Related Data Allergies/Adverse Reactions: Allergies Allergy/AdvReac Type Severity Reaction Status Date / Time No Known Allergies Allergy Verified 08/30/20 06:58 Home Medications: Home Meds Sertraline [Zoloft] 50 mg PO DAILY 07/26/17 [History] Vits #93/Iron Fum/FA [ Formula Tablet] 1 tab PO DAILY 08/30/20 [History] Past Medical History - Past Health History Medical/Surgical History: Denies Medical/Surgical History HEENT History: Reports: None Cardiovascular History: Reports: None Respiratory History: Reports: None Gastrointestinal History: Reports: None Genitourinary History: Reports: None [employer] History: Reports: Other (See Below) Other OB/BYN History: Musculoskeletal History: Reports: None Neurological History: Reports: None Psychiatric History: Reports: Depression Endocrine/Metabolic History: Reports: None Hematologic History: Reports: None Oncologic (Cancer) History: Reports: None Dermatologic History: Reports: None - Infectious Disease History Infectious Disease History: Reports: Chicken Pox - Past Surgical History Head Surgeries/Procedures: Reports: None HEENT Surgical History: Reports: None Cardiovascular Surgical History: Reports: None Respiratory Surgical History: Reports: None GI Surgical History: Reports: None Female Surgical History: Reports: None Endocrine Surgical History: Reports: None Neurological Surgical History: Reports: None Musculoskeletal Surgical History: Reports: None Oncologic Surgical History: Reports: None Dermatological Surgical History: Reports: None Social & Family History - Family History Family Medical History: No Pertinent Family History - Tobacco Use Tobacco Use Status *Q: Never Tobacco User Second Hand Smoke Exposure: No - Caffeine Use Caffeine Use: Reports: Soda Other Caffeine Use: rarely - Recreational Drug Use Recreational Drug Use: No H&P Review of Systems - Review of Systems: Review Of Systems: See Below General: Reports: No Symptoms HEENT: Reports: No Symptoms Pulmonary: Reports: No Symptoms Cardiovascular: Reports: No Symptoms Gastrointestinal: Reports: No Symptoms Genitourinary: Reports: No Symptoms Musculoskeletal: Reports: No Symptoms Skin: Reports: No Symptoms Psychiatric: Reports: No Symptoms Neurological: Reports: No Symptoms Hematologic/Lymphatic: Reports: No Symptoms Immunologic: Reports: No Symptoms L&D Exam - Exam Exam: See Below - Vital Signs Vital Signs: Last Vital Signs Temp 97.4 C H 08/30/20 07:38 Pulse 97 08/30/20 08:02 Resp 18 08/30/20 07:38 BP 132/74 08/30/20 08:02 Pulse Ox 96 08/30/20 07:38 Weight: 108.862 kg - OB Specific Contraction Intensity: Mild Movement: Active Heart Tones: Present Heart Rate (FHR) Variability: Moderate (6-25 bmp) Presentation: Vertex - Escalante Score Escalante Score Cervix Position: Midposition Escalante Score Consistency: Soft Escalante Score Effacement: 51-70% Escalante Score Dilation: 1-2 cm Escalante Score 's Station: -1 ,0 Escalante Score Total: 8 - Exam General: Alert, Oriented, Cooperative HEENT: PERRLA, Conjunctiva Clear, EACs Clear, EOMI, Hearing Intact, Mucosa Moist & [place], Nares Patent, Normal Nasal Septum, Posterior Pharynx Clear, Pupils Equal, Pupils Reactive, TMs Clear Neck: Supple, Trachea Midline Lungs: Clear to Auscultation, Normal Respiratory Effort Cardiovascular: Regular Rate, Regular Rhythm GI/Abdominal Exam: Normal Bowel Sounds, Soft, Non-Tender, No Organomegaly, No Distention, No Abnormal Bruit, No Mass, Pelvis Stable Rectal Exam: Normal Exam, Normal Rectal Tone Genitourinary: Normal external exam, Normal bimanual exam, Normal speculum exam Back Exam: Normal Inspection, Full Range of Motion Extremities: Normal Inspection, Normal Range of Motion, Non-Tender, No Pedal Edema, Normal Capillary Refill Skin: Warm, Dry, Intact Neurological: Cranial Nerves Intact, Reflexes Equal Bilateral Psychiatric: Alert, Normal Affect, Normal Mood - Patient Data Lab Results Last 24 hrs: Laboratory Results - last 24 hr 08/30/20 08/30/20 08/30/20 Range/Units 06:48 07:00 07:17 WBC 8.1 (4.5-11.0) K/uL RBC 4.34 (3.30-5.50) M/uL Hgb 13.2 (12.0-15.0) g/dL Hct 37.8 (36.0-48.0) % MCV 87 (80-98) fL MCH 30 (27-31) pg MCHC 35 (32-36) % Plt Count 205 (150-400) K/uL Neut % (Auto) 66.3 H (36-66) % Lymph % (Auto) 24.7 (24-44) % [place] % (Auto) 7.7 H (2-6) % Eos % (Auto) 0.9 L (2-4) % Baso % (Auto) 0.4 (0-1) % Urine Color Yellow (YELLOW) Urine Appearance Slightly cloudy A (CLEAR) Urine pH 6.5 (5.0-8.0) Ur Specific [place] 1.025 (1.008-1.030) Urine Protein Negative (NEGATIVE) mg/dL Urine Glucose (UA) Negative (NEGATIVE) mg/dL Urine Ketones Negative (NEGATIVE) mg/dL Urine Occult Blood Negative (NEGATIVE) Urine Nitrite Negative (NEGATIVE) Urine Bilirubin Negative (NEGATIVE) Urine Urobilinogen 0.2 (0.2-1.0) EU/dL Ur Leukocyte Esterase Small H (NEGATIVE) Urine RBC Not seen (0-5) Urine WBC 5-10 H (0-5) Ur Epithelial Cells Many Amorphous Sediment Not seen Urine Bacteria Many Urine Mucus Not seen Urine Opiates Screen Negative (NEGATIVE) Ur Oxycodone Screen Negative (NEGATIVE) Urine Methadone Screen Negative (NEGATIVE) Ur Propoxyphene Screen Negative (NEGATIVE) Ur Barbiturates Screen Negative (NEGATIVE) Ur Tricyclics Screen Negative (NEGATIVE) Ur Phencyclidine Scrn Negative (NEGATIVE) Ur Amphetamine Screen Negative (NEGATIVE) U Methamphetamines Scrn Negative (NEGATIVE) Urine MDMA Screen Negative (NEGATIVE) U Benzodiazepines Scrn Negative (NEGATIVE) U Cocaine Metab Screen Negative (NEGATIVE) U Marijuana (THC) Screen Negative (NEGATIVE) SARS CoV-2 RNA Rapid VENKAT 08/30/20 Range/Units 07:44 WBC (4.5-11.0) K/uL RBC (3.30-5.50) M/uL Hgb (12.0-15.0) g/dL Hct (36.0-48.0) % MCV (80-98) fL MCH (27-31) pg MCHC (32-36) % Plt Count (150-400) K/uL Neut % (Auto) (36-66) % Lymph % (Auto) (24-44) % [place] % (Auto) (2-6) % Eos % (Auto) (2-4) % Baso % (Auto) (0-1) % Urine Color (YELLOW) Urine Appearance (CLEAR) Urine pH (5.0-8.0) Ur Specific [place] (1.008-1.030) Urine Protein (NEGATIVE) mg/dL Urine Glucose (UA) (NEGATIVE) mg/dL Urine Ketones (NEGATIVE) mg/dL Urine Occult Blood (NEGATIVE) Urine Nitrite (NEGATIVE) Urine Bilirubin (NEGATIVE) Urine Urobilinogen (0.2-1.0) EU/dL Ur Leukocyte Esterase (NEGATIVE) Urine RBC (0-5) Urine WBC (0-5) Ur Epithelial Cells Amorphous Sediment Urine Bacteria Urine Mucus Urine Opiates Screen (NEGATIVE) Ur Oxycodone Screen (NEGATIVE) Urine Methadone Screen (NEGATIVE) Ur Propoxyphene Screen (NEGATIVE) Ur Barbiturates Screen (NEGATIVE) Ur Tricyclics Screen (NEGATIVE) Ur Phencyclidine Scrn (NEGATIVE) Ur Amphetamine Screen (NEGATIVE) U Methamphetamines Scrn (NEGATIVE) Urine MDMA Screen (NEGATIVE) U Benzodiazepines Scrn (NEGATIVE) U Cocaine Metab Screen (NEGATIVE) U Marijuana (THC) Screen (NEGATIVE) SARS CoV-2 RNA Rapid VENKAT Negative Result Diagrams: 08/30/20 06:48 - Problem List (1) arrhythmia affecting , antepartum SNOMED Code(s): 302562747, 412357526 ICD Code: O36.8390 - MATERN CARE FOR ABNLT FETL HRT RATE OR RHYM, UNSP TRI, UNSP Status: Acute Priority: High Current Visit: Yes (2) Rh negative status during SNOMED Code(s): 562498325 ICD Code: O26.899 - OTH RELATED CONDITIONS, UNSPECIFIED TRIMESTER; Z67.91 - UNSPECIFIED BLOOD TYPE, RH NEGATIVE Status: Acute Current Visit: Yes Qualifiers: Trimester: third trimester Qualified Code(s): O26.893 - Other specified related conditions, third trimester; Z67.91 - Unspecified blood type, Rh negative (3) Encounter for induction of labor SNOMED Code(s): 676718929 ICD Code: Z34.90 - ENCNTR FOR SUPRVSN OF NORMAL , UNSP, UNSP TRI MESTER Status: Acute Current Visit: No (4) SNOMED Code(s): 79417741 ICD Code: Z34.90 - ENCNTR FOR SUPRVSN OF NORMAL , UNSP, UNSP TRIMESTER Status: Acute Current Visit: No Qualifiers: (5) High risk , antepartum SNOMED Code(s): 96145498 ICD Code: O09.90 - SUPERVISION OF HIGH RISK , UNSP, UNSP TRIMESTER Status: Acute Current Visit: Yes Problem List Initiated/Reviewed/Updated: Yes Orders Last 24hrs: Active Orders 24 hr Category Date Time Status Patient Status [ADT] Routine ADT 08/30/20 08:10 Ordered Ambulate [RC] PER UNIT ROUTINE Care 08/30/20 08:10 Ordered Communication Order [RC] ASDIRECTED Care 08/30/20 08:10 Ordered Communication Order [RC] ASDIRECTED Care 08/30/20 08:10 Ordered Heart Tones [RC] PER UNIT ROUTINE Care 08/30/20 08:10 Ordered Non Stress Test [RC] Click to Edit Care 08/30/20 08:10 Ordered Insert Urinary Catheter [OM.PC] ASDIRECTED Care 08/30/20 08:15 Ordered Local Anesthetic Infusion Pump [RC] ASDIRECTED Care 08/30/20 08:10 Ordered May Shower [RC] ASDIRECTED Care 08/30/20 08:10 Ordered Notify Provider Vital Signs [RC] PRN Care 08/30/20 08:10 Ordered Notify Provider [RC] PRN Care 08/30/20 08:10 Ordered PCEA Epidural [RC] ASDIRECTED Care 08/30/20 08:10 Ordered PCEA Epidural [RC] ASDIRECTED Care 08/30/20 08:11 Ordered Up ad Vero [RC] ASDIRECTED Care 08/30/20 08:10 Ordered Urinary Catheter Assessment [RC] ASDIRECTED Care 08/30/20 08:11 Ordered VTE/DVT Education [RC] Click to Edit Care 08/30/20 08:13 Ordered Vital Signs [RC] PER UNIT ROUTINE Care 08/30/20 08:10 Ordered Regular Diet [DIET] Diet 08/30/20 Breakfast Ordered BPP w NST [US] Routine Exams 08/30/20 07:00 Taken Acetaminophen [TylenoL] Med 08/30/20 08:10 Ordered 650 mg PO Q4H PRN Lactated Ringers [Ringers, Lactated] 1,000 ml Med 08/30/20 08:10 Ordered IV .BOLUS Ondansetron [Zofran] Med 08/30/20 08:10 Ordered 4 mg IV Q4H PRN Sodium Chloride 0.9% [Saline Flush] Med 08/30/20 08:10 Ordered 10 ml FLUSH ASDIRECTED PRN ePHEDrine [ePHEDrine sulfate] Med 08/30/20 08:10 Ordered 10 mg IVPUSH ASDIRECTED PRN DVT/VTE Prophylaxis Reflex [OM.PC] Routine Oth 08/30/20 08:10 Ordered Epidural Catheter Management [OM.PC] Urgent Oth 08/30/20 08:10 Ordered Saline Lock Insert [OM.PC] Routine Oth 08/30/20 08:10 Ordered Resuscitation Status Routine Resus Stat 08/30/20 08:10 Ordered Assessment/Plan Comment:: 08/30/2020 34 yo here for a planned medical induction of labor due to arrhythmia noted in 3rd trimester. Patient is agreeable to plan to induce today. FHTs category one Contractions noted, patient not feeling them SVE-2/75/-2 Cytotec 50 mcg per vagina Labs-O negative, Hep B neg, Hep C neg, HIV neg, RPR nonreactive, Rubella Immune, GBS negative, COVID negative today Pediatrics aware of impending delivery Plan- Monitor for active labor Monitor FHTs continuously Patient can eat a regular diet Patient can be up ad vero Epidural for pain management per patient request Plan and anticipate a vaginal delivery
--- NOTE | 2020-08-30 09:56 | US ---
BPP w NST INDICATION: Pre induction COMPARISON: None FINDINGS: Single live IUP in: Cephalic position. heart rate: heart motion identified. heart rate unable to be obtained Biophysical profile score: 8/8. SKYLAR: 17.7 cm. IMPRESSION: Normal biophysical profile score of 8/8. heart rate unable to be calculated due to technical reasons
--- NOTE | 2020-08-30 12:34 | PCM.PNLD ---
Labor Progress Note - VS & Meds Vital Signs: Last Vital Signs Temp 97.4 C H 08/30/20 07:38 Pulse 96 08/30/20 08:57 Resp 18 08/30/20 07:38 BP 130/82 08/30/20 08:49 Pulse Ox 98 08/30/20 08:57 Active Medications: Current Medications Acetaminophen (Acetaminophen 325 Mg Tab) 650 mg PO Q4H PRN PRN Reason: Pain (Mild 1-3) and fever Ephedrine Sulfate (Ephedrine 50 Mg/Ml Sdv) 10 mg IVPUSH ASDIRECTED PRN PRN Reason: Hypotension Oxytocin/Sodium Chloride (Pitocin In Ns 20 Units/1,000 Ml) 20 unit in 1,000 mls @ 6 mls/hr IV TITRATE AUGUST; Protocol Ondansetron HCl (Ondansetron 4 Mg/2 Ml Sdv) 4 mg IV Q4H PRN PRN Reason: Nausea/Vomiting Sodium Chloride (Sodium Chloride 0.9% 10 Ml Syringe) 10 ml FLUSH ASDIRECTED PRN PRN Reason: Keep Vein Open Discontinued Medications Lactated Ringer's (Ringers, Lactated) 1,000 mls @ 999 mls/hr IV .BOLUS ONE Stop: 08/30/20 09:10 Oxytocin/Sodium Chloride (Pitocin In Ns 20 Units/1,000 Ml) Confirm Administered Dose 20 unit in 1,000 mls @ as directed .ROUTE .STK-MED ONE Stop: 08/30/20 09:06 Misoprostol (Misoprostol 50 Mcg (1/2 Of 100 Mcg) Tab) 50 mcg VAG ONETIME ONE Stop: 08/30/20 06:50 Last Admin: 08/30/20 07:53 Dose: 50 mcg Documented by: - Uterine Contractions Uterine Monitoring Mode: External [place] Contraction Frequency (min): 1-3 Contraction Duration (sec): 50-70 Contraction Intensity: Mild Uterine Resting Tone: Soft - Monitoring Heart Rate (FHR) Variability: Moderate (6-25 bmp) - Vaginal Exam Dilation (cm): 3 Effacement (Percent): 80 Station: -1 Cervical Position: Midposition Sterile Vaginal Exam Performed By: Galilea Johnston - Labor Progress (Free Text) Labor Progress: 08/30/2020 Patient progressing nicely FHTs category one Contractions getting more regular SVE-3/80/-1--2 Patient still comfortable with position change Plan- Continue to monitor labor Continue to monitor FHTs Plan epidural for pain management per patient request Start Pitocin to keep progressive labor pattern Plan and anticipate vaginal delivery
[2020-08-30] MEDS ORDERED: Ropivacaine 100 ML ONE (15:46)
--- NOTE | 2020-08-30 16:32 | PCM.PNLD ---
Labor Progress Note - VS & Meds Vital Signs: Last Vital Signs Temp 96.9 C H 08/30/20 12:39 Pulse 91 08/30/20 15:32 Resp 16 08/30/20 15:32 BP 142/87 H 08/30/20 15:32 Pulse Ox 97 08/30/20 15:32 Active Medications: Current Medications Acetaminophen (Acetaminophen 325 Mg Tab) 650 mg PO Q4H PRN PRN Reason: Pain (Mild 1-3) and fever Ephedrine Sulfate (Ephedrine 50 Mg/Ml Sdv) 10 mg IVPUSH ASDIRECTED PRN PRN Reason: Hypotension Oxytocin/Sodium Chloride (Pitocin In Ns 20 Units/1,000 Ml) 20 unit in 1,000 mls @ 6 mls/hr IV TITRATE AUGUST; Protocol Last Titration: 08/30/20 14:53 Dose: 7 munits/min, 21 mls/hr Documented by: Ondansetron HCl (Ondansetron 4 Mg/2 Ml Sdv) 4 mg IV Q4H PRN PRN Reason: Nausea/Vomiting Sodium Chloride (Sodium Chloride 0.9% 10 Ml Syringe) 10 ml FLUSH ASDIRECTED PRN PRN Reason: Keep Vein Open Discontinued Medications Lactated Ringer's (Ringers, Lactated) 1,000 mls @ 999 mls/hr IV .BOLUS ONE Stop: 08/30/20 09:10 Last Admin: 08/30/20 13:21 Dose: 999 mls/hr Documented by: Oxytocin/Sodium Chloride (Pitocin In Ns 20 Units/1,000 Ml) Confirm Administered Dose 20 unit in 1,000 mls @ as directed .ROUTE .STK-MED ONE Stop: 08/30/20 09:06 Last Admin: 08/30/20 13:25 Dose: Not Given Documented by: Ropivacaine (Naropin 0.2%) Confirm Administered Dose 100 mls @ as directed .ROUTE .STK-MED ONE Stop: 08/30/20 15:47 Misoprostol (Misoprostol 50 Mcg (1/2 Of 100 Mcg) Tab) 50 mcg VAG ONETIME ONE Stop: 08/30/20 06:50 Last Admin: 08/30/20 07:53 Dose: 50 mcg Documented by: - Uterine Contractions Uterine Monitoring Mode: External [place] Contraction Frequency (min): 1-2 Contraction Duration (sec): 60-100 Contraction Intensity: Moderate Uterine Resting Tone: Soft - Monitoring Heart Rate (FHR) Variability: Moderate (6-25 bmp) - Vaginal Exam Dilation (cm): 3 Effacement (Percent): 80 Station: -2 Cervical Position: Midposition Sterile Vaginal Exam Performed By: Galilea Johnston - Labor Progress (Free Text) Labor Progress: 08/30/2020 Patient is now comfortable with epidural SVE-3/80/-2 FHTs category one Pitocin per protocol at bedside and supportive Plan- Continue to monitor labor Continue to monitor FHTs Continue epidural for pain control Continue pitocin per protocol Plan and anticipate a vaginal delivery
--- NOTE | 2020-08-30 17:47 | ANES ---
DATE OF SERVICE: 08/30/2020 INDICATION: Michelle is a 34-year-old, female patient in our Obstetric Unit with Galilea Johnston CNM. She is G5, P4, in active labor. I was consulted to assess the patient for labor epidural. Upon arrival, I found a healthy 34-year-old, female patient. Upon reviewing history and lab work, I found no contraindication to epidural placement. Consent was received. TECHNIQUE: I had her seated at the edge of the bed. Betadine prep x3 to lumbar region. Sterile drape was placed, 1% lidocaine skin wheal as well as deep at the L3-L4 region. 17- gauge Tuohy was placed to loss of resistance. Negative CSF, negative heme, negative paresthesia. I inserted a silicone catheter to 13 cm. The needle was removed. I dosed her with a test dose of 3 mL of 1.5% lidocaine, 1:200,000 epinephrine. The catheter was then secured to her back. Placed her in the prone position. After noted negative sequelae to the test dose, I dosed her with 12 mL 0.2% ropivacaine and began an infusion of 12 mL an hour of the same 0.2% ropivacaine. She tolerated the procedure quite well. Please refer to nurse's notes for vital signs and neuro status, which were unchanged and within normal limits. I reported off to the nursing staff. Flex [place] CRNA /[id number]
[2020-08-30] MEDS ORDERED: Penicillin G Potassium 5 MILLUNITS in Sodium Chloride 0.9% 50 ML IV ONE (19:08)
[2020-08-30] MEDS ORDERED: Ibuprofen 200 MG Tab, 24 Tab Bulk Bottle PO PRN (20:11)
[2020-08-30] MEDS ORDERED: Witch Hazel Medicated Pads 100/Jar TOP ONE (20:11)
[2020-08-30] MEDS ORDERED: Lanolin 100% Cream 40 GM Tube TOP ONE (20:11)
[2020-08-30] MEDS ORDERED: Benzocaine 20% Top Spray 56 GM Bottle TOP ONE (20:11)
[2020-08-30] MEDS ORDERED: Acetaminophen 325 MG Tab, 50 Tab Bulk Bottle PO PRN (20:11)
--- NOTE | 2020-08-30 20:48 | PCM.DEL ---
L & D Note - General Info Date of Service: 08/30/20 Mother's Due Date: 09/05/20 - Delivery Note Cervical Ripening Method: Misoprostil Delivery Outcome: Livebirth Delivery Method: Spontaneous Vaginal Delivery-Single Delivery Mode: Spontaneous Presentation: Left Occiput Anterior (ZIGGY) Nuchal Cord: None Anesthesia Type: Epidural Amniotic Fluid Description: Clear Episiotomy Type: None Laceration: None Placenta: Intact, Spontaneous Cord: 3 Vessels Estimated Blood Loss: 250 Resuscitation Needed: Yes Kimberly: Suctioned, Bulb Syringe, Stimulated, Warmed, Warmer Used Provider: Galilea Johnston Score 1 min: 3 Score 5 min: 7 Score 10 min: 8 Second Stage Interventions: Reports: Second Nurse Assessed Progress of Descent, Second Nurse Reviewed Contraction Pattern, Second Nurse Reviewed Heart Tones, Encouragement Given, Pushing Effectively, Pushing, McRobert's Position, Pushing, Pulls Own Legs Back, Pushing, Stirrups/Leg Supports Delivery Comments (Free Text/Narrative):: 08/30/2020 34 yo delivered a viable male infant in ZIGGY position with only one push at 1948 on 08/30/2020 over an intact perineum. was then placed on abdomen and was dried and stimulated, he attempted to cry but was slightly shocked. Cord was then double clamped and cut and Infant was then brought to warmer. His heart rate was doing good at 140s but little to no respiratory effort after one minute decision made to CPAP and begin to call help do to history of arrhythmia known before delivery. O2 sat also applied. CPAP was done for approximately 5 minutes with good heart rate entire time. began to pink nicely in color and began to have good tone and effort. Did attempt to delee suction with a thick 2ml returned of clear fluid. Infant had blow by during the deep suction and tolerated well. O2 sats were within range at all times for age and then infant was brought to mother for skin to skin. We continued to monitor closely while mother and infant bonded. APGARS-3/7/8, weight-7lbs 1oz, length-20.5 inches Placenta then came intake, three vessel cord, EBL-250ml, no lacerations noted of vagina, perineum, rectum, or cervix. Infant now stable with mother in labor and delivery room Stages- [phone] - General Info Date of Service: 08/30/20 Functional Status: Reports: Pain Controlled - Review of Systems General: Reports: No Symptoms HEENT: Reports: No Symptoms Pulmonary: Reports: No Symptoms Cardiovascular: Reports: No Symptoms Gastrointestinal: Reports: No Symptoms Genitourinary: Reports: No Symptoms Musculoskeletal: Reports: No Symptoms Skin: Reports: No Symptoms Neurological: Reports: No Symptoms Psychiatric: Reports: No Symptoms - Patient Data Vitals - Most Recent: Last Vital Signs Temp 36.5 C 08/30/20 17:45 Pulse 80 08/30/20 18:08 Resp 18 08/30/20 18:08 BP 128/69 08/30/20 18:08 Pulse Ox 97 08/30/20 18:08 Weight - Most Recent: 108.862 kg I&O - Last 24 Hours: Intake & Output 08/30/20 08/30/20 08/30/20 06:59 14:59 22:59 Intake Total 1441 Balance 1441 Lab Results Last 24 Hours: Laboratory Results - last 24 hr 08/30/20 08/30/20 08/30/20 Range/Units 06:48 07:00 07:17 WBC 8.1 (4.5-11.0) K/uL RBC 4.34 (3.30-5.50) M/uL Hgb 13.2 (12.0-15.0) g/dL Hct 37.8 (36.0-48.0) % MCV 87 (80-98) fL MCH 30 (27-31) pg MCHC 35 (32-36) % Plt Count 205 (150-400) K/uL Neut % (Auto) 66.3 H (36-66) % Lymph % (Auto) 24.7 (24-44) % [place] % (Auto) 7.7 H (2-6) % Eos % (Auto) 0.9 L (2-4) % Baso % (Auto) 0.4 (0-1) % Urine Color Yellow (YELLOW) Urine Appearance Slightly cloudy A (CLEAR) Urine pH 6.5 (5.0-8.0) Ur Specific [place] 1.025 (1.008-1.030) Urine Protein Negative (NEGATIVE) mg/dL Urine Glucose (UA) Negative (NEGATIVE) mg/dL Urine Ketones Negative (NEGATIVE) mg/dL Urine Occult Blood Negative (NEGATIVE) Urine Nitrite Negative (NEGATIVE) Urine Bilirubin Negative (NEGATIVE) Urine Urobilinogen 0.2 (0.2-1.0) EU/dL Ur Leukocyte Esterase Small H (NEGATIVE) Urine RBC Not seen (0-5) Urine WBC 5-10 H (0-5) Ur Epithelial Cells Many Amorphous Sediment Not seen Urine Bacteria Many Urine Mucus Not seen Urine Opiates Screen Negative (NEGATIVE) Ur Oxycodone Screen Negative (NEGATIVE) Urine Methadone Screen Negative (NEGATIVE) Ur Propoxyphene Screen Negative (NEGATIVE) Ur Barbiturates Screen Negative (NEGATIVE) Ur Tricyclics Screen Negative (NEGATIVE) Ur Phencyclidine Scrn Negative (NEGATIVE) Ur Amphetamine Screen Negative (NEGATIVE) U Methamphetamines Scrn Negative (NEGATIVE) Urine MDMA Screen Negative (NEGATIVE) U Benzodiazepines Scrn Negative (NEGATIVE) U Cocaine Metab Screen Negative (NEGATIVE) U Marijuana (THC) Screen Negative (NEGATIVE) SARS CoV-2 RNA Rapid VENKAT 08/30/20 Range/Units 07:44 WBC (4.5-11.0) K/uL RBC (3.30-5.50) M/uL Hgb (12.0-15.0) g/dL Hct (36.0-48.0) % MCV (80-98) fL MCH (27-31) pg MCHC (32-36) % Plt Count (150-400) K/uL Neut % (Auto) (36-66) % Lymph % (Auto) (24-44) % [place] % (Auto) (2-6) % Eos % (Auto) (2-4) % Baso % (Auto) (0-1) % Urine Color (YELLOW) Urine Appearance (CLEAR) Urine pH (5.0-8.0) Ur Specific [place] (1.008-1.030) Urine Protein (NEGATIVE) mg/dL Urine Glucose (UA) (NEGATIVE) mg/dL Urine Ketones (NEGATIVE) mg/dL Urine Occult Blood (NEGATIVE) Urine Nitrite (NEGATIVE) Urine Bilirubin (NEGATIVE) Urine Urobilinogen (0.2-1.0) EU/dL Ur Leukocyte Esterase (NEGATIVE) Urine RBC (0-5) Urine WBC (0-5) Ur Epithelial Cells Amorphous Sediment Urine Bacteria Urine Mucus Urine Opiates Screen (NEGATIVE) Ur Oxycodone Screen (NEGATIVE) Urine Methadone Screen (NEGATIVE) Ur Propoxyphene Screen (NEGATIVE) Ur Barbiturates Screen (NEGATIVE) Ur Tricyclics Screen (NEGATIVE) Ur Phencyclidine Scrn (NEGATIVE) Ur Amphetamine Screen (NEGATIVE) U Methamphetamines Scrn (NEGATIVE) Urine MDMA Screen (NEGATIVE) U Benzodiazepines Scrn (NEGATIVE) U Cocaine Metab Screen (NEGATIVE) U Marijuana (THC) Screen (NEGATIVE) SARS CoV-2 RNA Rapid VENKAT Negative Med Orders - Current: Current Medications Acetaminophen (Acetaminophen 325 Mg Tab) 650 mg PO Q4H PRN PRN Reason: Pain (Mild 1-3) and fever Acetaminophen (Acetaminophen 325 Mg Tab, 50 Tab Bulk Bottle) 0 mg PO Q4H PRN PRN Reason: Pain Ephedrine Sulfate (Ephedrine 50 Mg/Ml Sdv) 10 mg IVPUSH ASDIRECTED PRN PRN Reason: Hypotension Oxytocin/Sodium Chloride (Pitocin In Ns 20 Units/1,000 Ml) 20 unit in 1,000 mls @ 6 mls/hr IV TITRATE AUGUST; Protocol Last Titration: 08/30/20 17:32 Dose: 5 munits/min, 15 mls/hr Documented by: Ibuprofen (Ibuprofen 200 Mg Tab, 24 Tab Bulk Bottle) 600 mg PO Q6H PRN PRN Reason: Pain Ondansetron HCl (Ondansetron 4 Mg/2 Ml Sdv) 4 mg IV Q4H PRN PRN Reason: Nausea/Vomiting Sodium Chloride (Sodium Chloride 0.9% 10 Ml Syringe) 10 ml FLUSH ASDIRECTED PRN PRN Reason: Keep Vein Open Discontinued Medications Benzocaine (Benzocaine 20% Top [place] 56 Gm Bottle) 0 gm TOP ONETIME ONE Stop: 08/30/20 20:12 Emollient Ointment (Lanolin 100% Cream 40 Gm Tube) 1 gm TOP ONETIME ONE Stop: 08/30/20 20:12 Lactated Ringer's (Ringers, Lactated) 1,000 mls @ 999 mls/hr IV .BOLUS ONE Stop: 08/30/20 09:10 Last Admin: 08/30/20 13:21 Dose: 999 mls/hr Documented by: Oxytocin/Sodium Chloride (Pitocin In Ns 20 Units/1,000 Ml) Confirm Administered Dose 20 unit in 1,000 mls @ as directed .ROUTE .STK-MED ONE Stop: 08/30/20 09:06 Last Admin: 08/30/20 13:25 Dose: Not Given Documented by: Ropivacaine (Naropin 0.2%) Confirm Administered Dose 100 mls @ as directed .ROUTE .STK-MED ONE Stop: 08/30/20 15:47 Penicillin G Potassium 5 (millunits/ Sodium Chloride) 50 mls @ 100 mls/hr IV ONETIME ONE Stop: 08/30/20 19:37 Misoprostol (Misoprostol 50 Mcg (1/2 Of 100 Mcg) Tab) 50 mcg VAG ONETIME ONE Stop: 08/30/20 06:50 Last Admin: 08/30/20 07:53 Dose: 50 mcg Documented by: Emmett Marquez (Emmett Marquez Medicated Pads 100/Jar) 1 pad TOP ONETIME ONE Stop: 08/30/20 20:12 - Exam Urinary Catheter Total Time: 0Days 0Hours General: Alert, Oriented, Cooperative HEENT: Pupils Equal, Pupils Reactive, EOMI, Mucous Membr. Moist/[place] Neck: Supple Lungs: Clear to Auscultation, Normal Respiratory Effort Cardiovascular: Regular Rate, Regular Rhythm GI/Abdominal Exam: Normal Bowel Sounds, Soft, Non-Tender, No Organomegaly, No Distention, No Abnormal Bruit, No Mass, Pelvis Stable (Female) Exam: Normal External Exam, Normal Speculum Exam, Normal Bimanual Exam, Enlarged Uterus, Vaginal Bleeding Back Exam: Normal Inspection, Full Range of Motion Extremities: Normal Inspection, Normal Range of Motion, Non-Tender, No Pedal Edema, Normal Capillary Refill Skin: Warm, Dry, Intact Neurological: No New Focal Deficit Psy/Mental Status: Alert, Normal Affect, Normal Mood - Problem List & Annotations (1) arrhythmia affecting , antepartum SNOMED Code(s): 658394941, 379240877 Code(s): O36.8390 - MATERN CARE FOR ABNLT FETL HRT RATE OR RHYM, UNSP TRI, UNSP Status: Acute Priority: High Current Visit: Yes (2) Rh negative status during SNOMED Code(s): 241535558 Code(s): O26.899 - OTH RELATED CONDITIONS, UNSPECIFIED TRIMESTER; Z67.91 - UNSPECIFIED BLOOD TYPE, RH NEGATIVE Status: Acute Current Visit: Yes Qualifiers: Trimester: third trimester Qualified Code(s): O26.893 - Other specified related conditions, third trimester; Z67.91 - Unspecified blood type, Rh negative (3) Encounter for induction of labor SNOMED Code(s): 085888967 Code(s): Z34.90 - ENCNTR FOR SUPRVSN OF NORMAL , UNSP, UNSP TRIMESTER Status: Acute Current Visit: No (4) SNOMED Code(s): 21192099 Code(s): Z34.90 - ENCNTR FOR SUPRVSN OF NORMAL , UNSP, UNSP TRIMESTER Status: Acute Current Visit: No Qualifiers: (5) High risk , antepartum SNOMED Code(s): 14700984 Code(s): O09.90 - SUPERVISION OF HIGH RISK , UNSP, UNSP TRIMESTER Status: Acute Current Visit: Yes - Problem List Review Problem List Initiated/Reviewed/Updated: Yes - My Orders Last 24 Hours: My Active Orders 08/30/20 Breakfast Regular Diet [DIET] 08/30/20 08:10 Patient Status [ADT] Routine Ambulate [RC] PER UNIT ROUTINE Communication Order [RC] ASDIRECTED Communication Order [RC] ASDIRECTED Local Anesthetic Infusion Pump [RC] ASDIRECTED May Shower [RC] ASDIRECTED Notify Provider Vital Signs [RC] PRN Notify Provider [RC] PRN PCEA Epidural [RC] ASDIRECTED Up ad Alexa [RC] ASDIRECTED Vital Signs [RC] PER UNIT ROUTINE Acetaminophen [TylenoL] 650 mg PO Q4H PRN Ondansetron [Zofran] 4 mg IV Q4H PRN Sodium Chloride 0.9% [Saline Flush] 10 ml FLUSH ASDIRECTED PRN ePHEDrine [ePHEDrine sulfate] 10 mg IVPUSH ASDIRECTED PRN DVT/VTE Prophylaxis Reflex [OM.PC] Routine Epidural Catheter Management [OM.PC] Urgent Saline Lock Insert [OM.PC] Routine Resuscitation Status Routine 08/30/20 08:11 Urinary Catheter Assessment [RC] ASDIRECTED 08/30/20 08:13 VTE/DVT Education [RC] Click to Edit 08/30/20 08:15 Insert Urinary Catheter [OM.PC] ASDIRECTED 08/30/20 12:30 Oxytocin/Normal Saline [Pitocin in NS 20 Units/1,000 ML] 20 unit in 1,000 ml IV TITRATE 08/30/20 20:11 Acetaminophen [Tylenol Bulk Bottle] See Dose Instructions PO Q4H PRN Ibuprofen [Motrin Bulk Bottle] 600 mg PO Q6H PRN Assess Lochia [WOMSER] Per Unit Routine Assess Uterine Involution [WOMSER] Per Unit Routine 08/30/20 20:12 Patient Status [ADT] Routine Vital Signs [RC] PFP 08/30/20 20:13 Perineal Care [OM.PC] Per Unit Routine Sitz Bath [OM.PC] Per Unit Routine 08/31/20 06:00 CBC WITH AUTO DIFF [HEME] Routine - Assessment Assessment:: 08/30/2020 34 yo G5 now P5 delivered a viable male without complications - Plan Plan:: 08/30/2020 34 yo here for a planned medical induction of labor due to arrhythmia noted in 3rd trimester. Patient is agreeable to plan to induce today. FHTs category one Contractions noted, patient not feeling them SVE-2/75/-2 Cytotec 50 mcg per vagina Labs-O negative, Hep B neg, Hep C neg, HIV neg, RPR nonreactive, Rubella Immune, GBS negative, COVID negative today Pediatrics aware of impending delivery Plan- Monitor for active labor Monitor FHTs continuously Patient can eat a regular diet Patient can be up ad alexa Epidural for pain management per patient request Plan and anticipate a vaginal delivery 08/30/2020 Routine cares Encourage and support Discharge home in 24-48 hours
[2020-08-31] MEDS ORDERED: Lanolin 100% Cream 40 GM Tube TOP PRN (00:36)
[2020-08-31] MEDS ORDERED: Witch Hazel Medicated Pads 100/Jar TOP PRN (00:38)
[2020-08-31] MEDS ORDERED: Benzocaine 20% Top Spray 56 GM Bottle TOP SCH (00:45)
--- NOTE | 2020-08-31 10:40 | PCM.PNPP ---
- General Info Date of Service: 08/31/20 Functional Status: Reports: Pain Controlled - Review of Systems General: Reports: No Symptoms HEENT: Reports: No Symptoms Pulmonary: Reports: No Symptoms Cardiovascular: Reports: No Symptoms Gastrointestinal: Reports: No Symptoms Genitourinary: Reports: No Symptoms Musculoskeletal: Reports: No Symptoms Skin: Reports: No Symptoms Neurological: Reports: No Symptoms Psychiatric: Reports: No Symptoms - General Info Date of Service: 08/31/20 - Patient Data Vital Signs - Most Recent: Last Vital Signs Temp 36.1 C 08/31/20 10:06 Pulse 70 08/31/20 10:06 Resp 18 08/31/20 10:06 BP 122/71 08/31/20 10:06 Pulse Ox 97 08/31/20 10:06 Weight - Most Recent: 108.862 kg I&O - Last 24 Hours: Intake & Output 08/30/20 08/31/20 08/31/20 22:59 06:59 14:59 Intake Total 1441 Balance 1441 Lab Results - Last 24 Hours: Laboratory Results - last 24 hr 08/31/20 08/31/20 Range/Units 04:15 05:25 WBC 11.3 H (4.5-11.0) K/uL RBC 4.05 (3.30-5.50) M/uL Hgb 12.2 (12.0-15.0) g/dL Hct 35.8 L (36.0-48.0) % MCV 88 (80-98) fL MCH 30 (27-31) pg MCHC 34 (32-36) % Plt Count 174 (150-400) K/uL Neut % (Auto) 66.5 H (36-66) % Lymph % (Auto) 21.8 L (24-44) % [place] % (Auto) 10.8 H (2-6) % Eos % (Auto) 0.7 L (2-4) % Baso % (Auto) 0.2 (0-1) % Blood Type O NEGATIVE Gel Antibody Screen Negative Med Orders - Current: Current Medications Acetaminophen (Acetaminophen 325 Mg Tab, 50 Tab Bulk Bottle) 0 mg PO Q4H PRN PRN Reason: Pain Last Admin: 08/31/20 00:34 Dose: 325 mg Documented by: Benzocaine (Benzocaine 20% Top [place] 56 Gm Bottle) 15 gm TOP ASDIRECTED AUGUST Last Admin: 08/31/20 01:31 Dose: 1 spray Documented by: Emollient Ointment (Lanolin 100% Cream 40 Gm Tube) 40 gm TOP ASDIRECTED PRN PRN Reason: Pain Last Admin: 08/31/20 01:31 Dose: 1 applic Documented by: Ephedrine Sulfate (Ephedrine 50 Mg/Ml Sdv) 10 mg IVPUSH ASDIRECTED PRN PRN Reason: Hypotension Oxytocin/Sodium Chloride (Pitocin In Ns 20 Units/1,000 Ml) 20 unit in 1,000 mls @ 6 mls/hr IV TITRATE AUGUST; Protocol Last Titration: 08/30/20 17:32 Dose: 5 munits/min, 15 mls/hr Documented by: Ibuprofen (Ibuprofen 200 Mg Tab, 24 Tab Bulk Bottle) 600 mg PO Q6H PRN PRN Reason: Pain Last Admin: 08/31/20 00:34 Dose: 600 mg Documented by: Ondansetron HCl (Ondansetron 4 Mg/2 Ml Sdv) 4 mg IV Q4H PRN PRN Reason: Nausea/Vomiting Sodium Chloride (Sodium Chloride 0.9% 10 Ml Syringe) 10 ml FLUSH ASDIRECTED PRN PRN Reason: Keep Vein Open [place] ([place] Medicated Pads 100/Jar) 1 pad TOP ASDIRECTED PRN PRN Reason: Perineal Comfort Measure Last Admin: 08/31/20 01:31 Dose: 1 applic Documented by: Discontinued Medications Acetaminophen (Acetaminophen 325 Mg Tab) 650 mg PO Q4H PRN PRN Reason: Pain (Mild 1-3) and fever Benzocaine (Benzocaine 20% Top [place] 56 Gm Bottle) 0 gm TOP ONETIME ONE Stop: 08/30/20 20:12 Last Admin: 08/31/20 00:36 Dose: Not Given Documented by: Emollient Ointment (Lanolin 100% Cream 40 Gm Tube) 1 gm TOP ONETIME ONE Stop: 08/30/20 20:12 Last Admin: 08/31/20 00:36 Dose: Not Given Documented by: Lactated Ringer's (Ringers, Lactated) 1,000 mls @ 999 mls/hr IV .BOLUS ONE Stop: 08/30/20 09:10 Last Admin: 08/30/20 13:21 Dose: 999 mls/hr Documented by: Oxytocin/Sodium Chloride (Pitocin In Ns 20 Units/1,000 Ml) Confirm Administered Dose 20 unit in 1,000 mls @ as directed .ROUTE .STK-MED ONE Stop: 08/30/20 09:06 Last Admin: 08/30/20 13:25 Dose: Not Given Documented by: Ropivacaine (Naropin 0.2%) Confirm Administered Dose 100 mls @ as directed .ROUTE .STK-MED ONE Stop: 08/30/20 15:47 Penicillin G Potassium 5 (millunits/ Sodium Chloride) 50 mls @ 100 mls/hr IV ONETIME ONE Stop: 08/30/20 19:37 Last Admin: 08/30/20 21:52 Dose: Not Given Documented by: Misoprostol (Misoprostol 50 Mcg (1/2 Of 100 Mcg) Tab) 50 mcg VAG ONETIME ONE Stop: 08/30/20 06:50 Last Admin: 08/30/20 07:53 Dose: 50 mcg Documented by: Emmett Luu (Emmett Escobarel Medicated Pads 100/Jar) 1 pad TOP ONETIME ONE Stop: 08/30/20 20:12 Last Admin: 08/31/20 00:36 Dose: Not Given Documented by: - Interaction Infant Disposition, : [place] in Room with Family Infant Interaction: Holding Infant Infant Feeding: Breastfed ; Nursed Well Support Person: Significant Other - Recovery Exam Fundal Tone: Firm Fundal Level: At Umbilicus Fundal Placement: Midline Lochia Amount: Small Lochia Color: Rubra/Red Perineum Description: Intact, Minimal Bruising/Swelling Episiotomy/Laceration: None Bladder Status: Indwelling Catheter in Place - Exam General: Alert, Oriented, Cooperative HEENT: Pupils Equal, Pupils Reactive, EOMI, Mucous Membr. Moist/[place] Neck: Supple Lungs: Clear to Auscultation, Normal Respiratory Effort Cardiovascular: Regular Rate, Regular Rhythm GI/Abdominal Exam: Normal Bowel Sounds, Soft, Non-Tender, No Organomegaly, No Distention, No Abnormal Bruit, No Mass, Pelvis Stable Extremities: Normal Inspection, Normal Range of Motion, Non-Tender, No Pedal Edema, Normal Capillary Refill Skin: Warm, Dry, Intact Neurological: No New Focal Deficit Psy/Mental Status: Alert, Normal Affect, Normal Mood - Problem List & Annotations (1) arrhythmia affecting , antepartum SNOMED Code(s): 400427942, 050928042 Code(s): O36.8390 - MATERN CARE FOR ABNLT FETL HRT RATE OR RHYM, UNSP TRI, UNSP Status: Acute Priority: High Current Visit: Yes (2) Rh negative status during SNOMED Code(s): 810390610 Code(s): O26.899 - OTH RELATED CONDITIONS, UNSPECIFIED TRIMESTER; Z67.91 - UNSPECIFIED BLOOD TYPE, RH NEGATIVE Status: Acute Current Visit: Yes Qualifiers: Trimester: third trimester Qualified Code(s): O26.893 - Other specified related conditions, third trimester; Z67.91 - Unspecified blood type, Rh negative (3) Encounter for induction of labor SNOMED Code(s): 709419397 Code(s): Z34.90 - ENCNTR FOR SUPRVSN OF NORMAL , UNSP, UNSP TRIMESTER Status: Acute Current Visit: No (4) SNOMED Code(s): 75916561 Code(s): Z34.90 - ENCNTR FOR SUPRVSN OF NORMAL , UNSP, UNSP TRIMESTER Status: Acute Current Visit: No Qualifiers: (5) High risk , antepartum SNOMED Code(s): 19911424 Code(s): O09.90 - SUPERVISION OF HIGH RISK , UNSP, UNSP TRIMESTER Status: Acute Current Visit: Yes - Problem List Review Problem List Initiated/Reviewed/Updated: Yes - My Orders Last 24 Hours: My Active Orders 08/30/20 12:30 Oxytocin/Normal Saline [Pitocin in NS 20 Units/1,000 ML] 20 unit in 1,000 ml IV TITRATE 08/30/20 20:11 Acetaminophen [Tylenol Bulk Bottle] See Dose Instructions PO Q4H PRN Ibuprofen [Motrin Bulk Bottle] 600 mg PO Q6H PRN Assess Lochia [WOMSER] Per Unit Routine Assess Uterine Involution [WOMSER] Per Unit Routine 08/30/20 20:12 Patient Status [ADT] Routine Vital Signs [RC] PFP 08/30/20 20:13 Perineal Care [OM.PC] Per Unit Routine Sitz Bath [OM.PC] Per Unit Routine 08/31/20 00:36 Lanolin [Lansinoh HPA] 40 gm TOP ASDIRECTED PRN 08/31/20 00:38 emmett Luu [Tucks] 1 pad TOP ASDIRECTED PRN 08/31/20 00:45 Benzocaine [Wuxy-Y-Afgjnuo 20% [place]] 15 gm TOP ASDIRECTED 08/31/20 05:25 RHOGAM, [RHIG WORKUP, ] [BBK] Routine - Assessment Assessment:: 08/30/2020 34 yo G5 now P5 delivered a viable male infant without complications 08/31/2020 without complications day one Fundus firm and bleeding decreasing Hgb-12.2 Voiding and passing gas well - Plan Plan:: 08/30/2020 34 yo here for a planned medical induction of labor due to arrhythmia noted in 3rd trimester. Patient is agreeable to plan to induce today. FHTs category one Contractions noted, patient not feeling them SVE-2/75/-2 Cytotec 50 mcg per vagina Labs-O negative, Hep B neg, Hep C neg, HIV neg, RPR nonreactive, Rubella Immune, GBS negative, COVID negative today Pediatrics aware of impending delivery Plan- Monitor for active labor Monitor FHTs continuously Patient can eat a regular diet Patient can be up ad alexa Epidural for pain management per patient request Plan and anticipate a vaginal delivery 08/30/2020 Routine cares Encourage and support Discharge home in 24-48 hours 08/31/2020 Continue routine cares Continue to encourage and support Will plan discharge home tomorrow if infant is stable
[2020-09-01 07:24] VITALS: BP 121/74; PULSE 68
--- NOTE | 2020-09-01 09:04 | PCM.PNPP ---
- General Info Date of Service: 09/01/20 Functional Status: Reports: Pain Controlled - Review of Systems General: Reports: No Symptoms HEENT: Reports: No Symptoms Pulmonary: Reports: No Symptoms Cardiovascular: Reports: No Symptoms Gastrointestinal: Reports: No Symptoms Genitourinary: Reports: No Symptoms Musculoskeletal: Reports: No Symptoms Skin: Reports: No Symptoms Neurological: Reports: No Symptoms Psychiatric: Reports: No Symptoms - General Info Date of Service: 09/01/20 - Patient Data Vital Signs - Most Recent: Last Vital Signs Temp 35.9 C L 09/01/20 07:22 Pulse 68 09/01/20 07:22 Resp 18 09/01/20 07:22 BP 121/74 09/01/20 07:22 Pulse Ox 97 09/01/20 07:22 Weight - Most Recent: 108.862 kg Lab Results - Last 24 Hours: Laboratory Results - last 24 hr 08/31/20 Range/Units 05:25 Blood Type O NEGATIVE Gel Antibody Screen Negative Screen Negative Rhogam Indicated Yes, baby rh pos Med Orders - Current: Current Medications Acetaminophen (Acetaminophen 325 Mg Tab, 50 Tab Bulk Bottle) 0 mg PO Q4H PRN PRN Reason: Pain Last Admin: 08/31/20 00:34 Dose: 325 mg Documented by: Benzocaine (Benzocaine 20% Top [place] 56 Gm Bottle) 15 gm TOP ASDIRECTED AUGUST Last Admin: 08/31/20 01:31 Dose: 1 spray Documented by: Emollient Ointment (Lanolin 100% Cream 40 Gm Tube) 40 gm TOP ASDIRECTED PRN PRN Reason: Pain Last Admin: 08/31/20 01:31 Dose: 1 applic Documented by: Ephedrine Sulfate (Ephedrine 50 Mg/Ml Sdv) 10 mg IVPUSH ASDIRECTED PRN PRN Reason: Hypotension Oxytocin/Sodium Chloride (Pitocin In Ns 20 Units/1,000 Ml) 20 unit in 1,000 mls @ 6 mls/hr IV TITRATE AUGUST; Protocol Last Titration: 08/30/20 17:32 Dose: 5 munits/min, 15 mls/hr Documented by: Ibuprofen (Ibuprofen 200 Mg Tab, 24 Tab Bulk Bottle) 600 mg PO Q6H PRN PRN Reason: Pain Last Admin: 08/31/20 00:34 Dose: 600 mg Documented by: Ondansetron HCl (Ondansetron 4 Mg/2 Ml Sdv) 4 mg IV Q4H PRN PRN Reason: Nausea/Vomiting Sodium Chloride (Sodium Chloride 0.9% 10 Ml Syringe) 10 ml FLUSH ASDIRECTED PRN PRN Reason: Keep Vein Open Emmett Marquez (Witlon Escobarel Medicated Pads 100/Jar) 1 pad TOP ASDIRECTED PRN PRN Reason: Perineal Comfort Measure Last Admin: 08/31/20 01:31 Dose: 1 applic Documented by: Discontinued Medications Acetaminophen (Acetaminophen 325 Mg Tab) 650 mg PO Q4H PRN PRN Reason: Pain (Mild 1-3) and fever Benzocaine (Benzocaine 20% Top [place] 56 Gm Bottle) 0 gm TOP ONETIME ONE Stop: 08/30/20 20:12 Last Admin: 08/31/20 00:36 Dose: Not Given Documented by: Emollient Ointment (Lanolin 100% Cream 40 Gm Tube) 1 gm TOP ONETIME ONE Stop: 08/30/20 20:12 Last Admin: 08/31/20 00:36 Dose: Not Given Documented by: Lactated Ringer's (Ringers, Lactated) 1,000 mls @ 999 mls/hr IV .BOLUS ONE Stop: 08/30/20 09:10 Last Admin: 08/30/20 13:21 Dose: 999 mls/hr Documented by: Oxytocin/Sodium Chloride (Pitocin In Ns 20 Units/1,000 Ml) Confirm Administered Dose 20 unit in 1,000 mls @ as directed .ROUTE .STK-MED ONE Stop: 08/30/20 09:06 Last Admin: 08/30/20 13:25 Dose: Not Given Documented by: Ropivacaine (Naropin 0.2%) Confirm Administered Dose 100 mls @ as directed .ROUTE .STK-MED ONE Stop: 08/30/20 15:47 Penicillin G Potassium 5 (millunits/ Sodium Chloride) 50 mls @ 100 mls/hr IV ONETIME ONE Stop: 08/30/20 19:37 Last Admin: 08/30/20 21:52 Dose: Not Given Documented by: Misoprostol (Misoprostol 50 Mcg (1/2 Of 100 Mcg) Tab) 50 mcg VAG ONETIME ONE Stop: 08/30/20 06:50 Last Admin: 08/30/20 07:53 Dose: 50 mcg Documented by: Emmett Marquez (Emmett Marquez Medicated Pads 100/Jar) 1 pad TOP ONETIME ONE Stop: 08/30/20 20:12 Last Admin: 08/31/20 00:36 Dose: Not Given Documented by: - Infant Interaction Infant Disposition, : [place] in Room with Family Infant Interaction: Holding Infant Feeding: Breastfed Infant; Nursed Well Support Person: Significant Other - Recovery Exam Fundal Tone: Firm Fundal Level: At Umbilicus Fundal Placement: Midline Lochia Amount: Small Lochia Color: Rubra/Red Perineum Description: Intact, Minimal Bruising/Swelling Episiotomy/Laceration: None Bladder Status: Indwelling Catheter in Place - Exam General: Alert, Oriented, Cooperative HEENT: Pupils Equal, Pupils Reactive, EOMI, Mucous Membr. Moist/[place] Neck: Supple Lungs: Clear to Auscultation, Normal Respiratory Effort Cardiovascular: Regular Rate, Regular Rhythm GI/Abdominal Exam: Normal Bowel Sounds, Soft, Non-Tender, No Organomegaly, No Distention, No Abnormal Bruit, No Mass, Pelvis Stable Extremities: Normal Inspection, Normal Range of Motion, Non-Tender, No Pedal Edema, Normal Capillary Refill Skin: Warm, Dry, Intact Neurological: No New Focal Deficit Psy/Mental Status: Alert, Normal Affect, Normal Mood - Problem List & Annotations (1) arrhythmia affecting , antepartum SNOMED Code(s): 614312038, 065900373 Code(s): O36.8390 - MATERN CARE FOR ABNLT FETL HRT RATE OR RHYM, UNSP TRI, UNSP Status: Acute Priority: High Current Visit: Yes (2) Rh negative status during SNOMED Code(s): 087246975 Code(s): O26.899 - OTH RELATED CONDITIONS, UNSPECIFIED TRIMESTER; Z67.91 - UNSPECIFIED BLOOD TYPE, RH NEGATIVE Status: Acute Current Visit: Yes Qualifiers: Trimester: third trimester Qualified Code(s): O26.893 - Other specified related conditions, third trimester; Z67.91 - Unspecified blood type, Rh negative (3) Encounter for induction of labor SNOMED Code(s): 743782846 Code(s): Z34.90 - ENCNTR FOR SUPRVSN OF NORMAL , UNSP, UNSP TRIMESTER Status: Acute Current Visit: No (4) SNOMED Code(s): 86171384 Code(s): Z34.90 - ENCNTR FOR SUPRVSN OF NORMAL , UNSP, UNSP TRIMESTER Status: Acute Current Visit: No Qualifiers: (5) High risk , antepartum SNOMED Code(s): 45157571 Code(s): O09.90 - SUPERVISION OF HIGH RISK , UNSP, UNSP TRIMESTER Status: Acute Current Visit: Yes - Problem List Review Problem List Initiated/Reviewed/Updated: Yes - Assessment Assessment:: 08/30/2020 34 yo G5 now P5 delivered a viable male infant without complications 08/31/2020 without complications day one Fundus firm and bleeding decreasing Hgb-12.2 Voiding and passing gas well 09/01/2020 without complications day two Fundus firm and bleeding decreasing Did have a small clear colored clot that I sent to pathology-but no increased bleeding Voiding and passing gas well Discharge home today - Plan Plan:: 08/30/2020 34 yo here for a planned medical induction of labor due to arrhythmia noted in 3rd trimester. Patient is agreeable to plan to induce today. FHTs category one Contractions noted, patient not feeling them SVE-2/75/-2 Cytotec 50 mcg per vagina Labs-O negative, Hep B neg, Hep C neg, HIV neg, RPR nonreactive, Rubella Immune, GBS negative, COVID negative today Pediatrics aware of impending delivery Plan- Monitor for active labor Monitor FHTs continuously Patient can eat a regular diet Patient can be up ad alexa Epidural for pain management per patient request Plan and anticipate a vaginal delivery 08/30/2020 Routine cares Encourage and support Discharge home in 24-48 hours 08/31/2020 Continue routine cares Continue to encourage and support Will plan discharge home tomorrow if infant is stable Continue routine cares Continue to encourage and support Will plan discharge home today To see me in clinic in six weeks for visit
== END 2020-09-01 11:00 | disposition home or self-care (01) | DRG 807 ==
LOC: JP.OB 06:34 → OBSVTOIN 19:48 → JP.OB 19:48 → JP.MS 23:10
PROVIDERS: ADMIT Advanced Practice Midwife; ATTEND Advanced Practice Midwife
PROC: 10E0XZZ Delivery of Products of Conception, External Approach (ICD-10-PCS; principal; 2020-08-30)
PROC: 10907ZC Drainage of Amniotic Fluid, Therapeutic from Products of Conception, Via Natural or Artificial Opening (ICD-10-PCS; 2020-08-30)
PROC: 3E0P7VZ Introduction of Hormone into Female Reproductive, Via Natural or Artificial Opening (ICD-10-PCS; 2020-08-30)
PROC: 3E0R3BZ Introduction of Anesthetic Agent into Spinal Canal, Percutaneous Approach (ICD-10-PCS; 2020-08-30)
PROC: 4A1HXCZ Monitoring of Products of Conception, Cardiac Rate, External Approach (ICD-10-PCS; 2020-08-30)
DX: O76 Abnormality in fetal heart rate and rhythm complicating labor and delivery (principal); Z37.0 Single live birth; Z3A.38 38 weeks gestation of pregnancy; Z20.822 Contact with and (suspected) exposure to COVID-19
CPT/HCPCS: 36415; 36430; 51702; 76818; 76818-26; 80305-QW; 81001; 85025; 85460; 86850; 86900; 86901; 88307; A9270-GY; J2590; J2790; J2795; J7120; U0002